=== PATIENT | male | born 1965 | race African-American/Black ===

== ENCOUNTER 2016-12-21 01:06 | Emergency (ER) | payer MEDICARE ==
[~2016-12-21] VITALS: Ht 193 cm; Wt 117.5 kg
[~2016-12-21 01:06] MED LIST: CEPH-264 PO; CYCL10TA2 PO; CYCL5TAB PO; HYDR-971 PO; LANC1COM MC; SULINDAC; gabapentin; oxycodone
[2016-12-21 01:10] VITALS: BP 135/81
[2016-12-21] MEDS ORDERED: CLIN300C86 PO (02:45)
[2016-12-21] MEDS ORDERED: HYDR-971 PO (02:45)
--- NOTE | 2016-12-21 02:46 | PHYS DOC ---
Past Medical History Past Medical History: Anxiety, Arthritis, Bipolar, Depression, Diabetes-Type II , Hypertension, Other Additional Past Medical Histor: FIBROMYALGIA, NEUROPATHY, EARLY ONSET OSTEOARTHRITIS Past Surgical History: Other Additional Past Surgical Histo: R/L KNEE Alcohol Use: None Drug Use: None Adult General Chief Complaint Chief Complaint: ABSCESS HPI HPI 51-year-old male with history of diabetes presents with a red swollen painful area behind his right ear. He states it feels like an abscess. He denies any fever chills or sweats. He states he's had this before in the past. [] Review of Systems Review of Systems Constitutional: Denies fever or chills [] Eyes: Denies change in visual acuity, redness, or eye pain [] HENT: Denies nasal congestion or sore throat [] Respiratory: Denies cough or shortness of breath [] Cardiovascular: No additional information not addressed in HPI [] GI: Denies abdominal pain, nausea, vomiting, bloody stools or diarrhea [] : Denies dysuria or hematuria [] Musculoskeletal: Denies back pain or joint pain [] Integument: Per history of present illness [] Neurologic: Denies headache, focal weakness or sensory changes [] Endocrine: Denies polyuria or polydipsia [] Allergies Allergies Allergies Coded Allergies Type Severity Reaction Last Updated Verified iodine Allergy Severe Anaphylaxis 09/05/16 No shellfish derived Allergy Severe Anaphylaxis 09/05/16 No latex Allergy Intermediate Rash 09/05/16 No Physical Exam Physical Exam Constitutional: Well developed, well nourished, no acute distress, non-toxic appearance. [] HENT: Normocephalic, atraumatic, bilateral external ears normal, oropharynx moist, no oral exudates, nose normal. [] Eyes: PERRLA, EOMI, conjunctiva normal, no discharge. [] Neck: Normal range of motion, no tenderness, supple, no stridor. [] Cardiovascular:Heart rate regular rhythm, no murmur [] Lungs & Thorax: Bilateral breath sounds clear to auscultation [] Abdomen: Bowel sounds normal, soft, no tenderness, no masses, no pulsatile masses. [] Skin: Very small approximately 1 cm area of fluctuance and induration behind the right ear. [] Back: No tenderness, no CVA tenderness. [] Extremities: No tenderness, no cyanosis, no clubbing, ROM intact, no edema. [] Neurologic: Alert and oriented X 3, normal motor function, normal sensory function, no focal deficits noted. [] Psychologic: Affect normal, judgement normal, mood normal. [] Current Patient Data Vital Signs Vital Signs Date Time Temp Pulse Resp B/P Pulse Ox O2 Delivery O2 Flow Rate FiO2 12/21/16 01:10 98.1 100 20 97 Room Air 98.1 EKG EKG [] Radiology/Procedures Radiology/Procedures [] Course & Med Decision Making Course & Med Decision Making Pertinent Labs and Imaging studies reviewed. (See chart for details) [Procedure: Incision and drainage Small abscess was identified behind the right ear. An 11 blade was stabbed into the wound with immediate return. Material. I did express some small amount of. Material after the initial amount. Patient tolerated procedure well patient received 450 mg of clindamycin in the emergency department.] Dragon Disclaimer Dragon Disclaimer This electronic medical record was generated, in whole or in part, using a voice recognition dictation system. Departure Departure Impression: Primary Impression: Abscess of scalp Disposition: HOME, SELF-CARE Condition: STABLE Referrals: NICOLE SANDERS MD (PCP) Patient Instructions: Abscess Additional Instructions: Thank you for allowing us to participate in your care today. Followup with your primary care physician in 3 days if your symptoms do not improve. Return to the emergency department you have any new or concerning findings. This should be evaluated by the primary care physician and any necessary consulting services for continued management within a few days after discharge. Return to emergency room if you have any new or concerning symptoms including but not limited to fever, chills, nausea, vomiting, intractable pain, any new rashes, chest pain, shortness of air, uncontrolled bleeding, difficulty breathing, and/or vision loss. You may have been prescribed medication that can change in your level of thinking and ability to operate machinery. These medications include hydrocodone and Ativan. Also, Benadryl has been known to do this as well. Be sure to check with your pharmacist and ask if the medications you've prescribed can affect your level of consciousness. I recommend not operating heavy machinery or driving while on medication such as these. Scripts Hydrocodone/Apap 5-325 ([place] 5-325 Tablet)1 Each Tablet1 Tab PO PRN Q6HRS PRN PAIN #14 TAB Prov:CHARITY SANCHEZ DO 12/21/16 Clindamycin Hcl 300 Mg [id number] Mg PO QID infection #40 CAP Prov:CHARITY SANCHEZ DO 12/21/16 CHARITY SANCHEZ DO Dec 21, 2016 02:46
[2016-12-21] MEDS ORDERED: CLINDAMYCIN HCL 150 MG CAPSULE PO ONE (03:00)
[2016-12-21] MEDS ORDERED: HYDROCODONE/APAP 5/325MG TABLET. PO ONE (03:00)
== END 2016-12-21 03:15 | disposition home or self-care (01) ==
LOC: ER 01:06
DX: L02.811 Cutaneous abscess of head [any part, except face] (principal); I10 Essential (primary) hypertension; E11.9 Type 2 diabetes mellitus without complications; F31.9 Bipolar disorder, unspecified; M19.90 Unspecified osteoarthritis, unspecified site; M79.7 Fibromyalgia; Z91.041 Radiographic dye allergy status; Z91.040 Latex allergy status; Z91.013 Allergy to seafood
CPT/HCPCS: 10060; 99283-25

== ENCOUNTER 2017-07-11 21:11 | Emergency (ER) | payer MEDICARE ==
[~2017-07-11] VITALS: Ht 193 cm; Wt 112.9 kg
[~2017-07-11 21:11] MED LIST changes: +CLIN300C8 PO
[2017-07-11 22:02] LABS: BASO # 0.1 x10^3/uL (0.0-0.2); BASO % 1 % (0-3); EOS % 2 % (0-3); HEMATOCRIT 36.7 % (39.0-53.0); HEMOGLOBIN 12.4 g/dL (13.0-17.5); LYMPH # 3.9 x10^3/uL (1.0-4.8); LYMPH % 39 % (24-48); MEAN CORPUSCULAR HEMOGLOBIN 27 pg (25-35); MEAN CORPUSCULAR HGB CONC 34 g/dL (31-37); MEAN CORPUSCULAR VOLUME 78 fL (79-100); MONO % 7 % (0-9); NEUT % 51 % (31-73); PLATELET COUNT 515 x10^3/uL (140-400); RED BLOOD COUNT 4.68 x10^6/uL (4.30-5.70); RED CELL DISTRIBUTION WIDTH 14.6 % (11.5-14.5)
[2017-07-11 22:03] LABS: ANION GAP 8 (6-14); BLOOD UREA NITROGEN 8 mg/dL (8-26); CALCIUM 8.9 mg/dL (8.5-10.1); CARBON DIOXIDE 30 mmol/L (21-32); CHLORIDE 103 mmol/L (98-107); CREATININE 0.9 mg/dL (0.7-1.3); GFR 106.8; GLUCOSE 149 mg/dL (70-99); POTASSIUM 3.3 mmol/L (3.5-5.1); SODIUM 141 mmol/L (136-145)
[2017-07-11 22:10] LABS: ALBUMIN 3.3 g/dL (3.4-5.0); ALK PHOS 75 U/L (46-116); ALT (SGPT) 19 U/L (16-63); AST (SGOT) 8 U/L (15-37); DIRECT BILIRUBIN < 0.1 mg/dL (0.0-0.2); TOTAL BILIRUBIN 0.3 mg/dL (0.2-1.0); TOTAL PROTEIN 7.6 g/dL (6.4-8.2)
[2017-07-11 23:30] VITALS: BP 121/89
[2017-07-11] MEDS ORDERED: ASPI-482 PO (23:45)
--- NOTE | 2017-07-11 23:45 | PHYS DOC ---
Past Medical History Past Medical History: Anxiety, Arthritis, Bipolar, Depression, Diabetes-Type II , Hypertension, Other Additional Past Medical Histor: FIBROMYALGIA, NEUROPATHY, EARLY ONSET OSTEOARTHRITIS Past Surgical History: Other Additional Past Surgical Histo: R/L KNEE Alcohol Use: None Drug Use: None Adult General Chief Complaint Chief Complaint: CHEST PAIN HPI HPI 51-year-old male presenting to the emergency department today with substernal chest pain that is 7/10 sharp constant associate with nausea that radiates to his left arm. Worse with Deep breaths. not exertional. He has a history of type II diabetes and high blood pressure. He denies unilateral leg swelling hemoptysis family history of blood clotting disorders or history of blood clot. Review of systems negative for vomiting. Nursing note states the patient has a history diaphoresis however after clarifying with the patient he denies having sweetness of the skin of the time of chest pain. He denies abdominal pain fevers chills or cough. All of the review of systems is negative unless otherwise noted in HPI. ED Course: 51-year-old male presenting to emergency department gave a chest pain. Vital signs unremarkable. Patients painted improved on re-examination. EKG unremarkable. Troponin negative. Patients painted present for greater than six hours. I had a risk-benefit discussion with the patient on acute inpatient admission versus outpatient follow-up. Heart score 3. The patient desires to follow up with his primary care physician for possible outpatient provocative testing. The patient was then discharged home and stable condition. Face-to- face discharge instructions given. Patient provided aspirin daily until follow- up this doctor. Patients comfortable plan. Allergies Allergies Allergies Coded Allergies Type Severity Reaction Last Updated Verified iodine Allergy Severe Anaphylaxis 09/05/16 No shellfish derived Allergy Severe Anaphylaxis 09/05/16 No latex Allergy Intermediate Rash 09/05/16 No Physical Exam Physical Exam Constitutional: Well developed, well nourished, no acute distress, non-toxic appearance. [] HENT: Normocephalic, atraumatic, bilateral external ears normal, oropharynx moist, no oral exudates, nose normal. [] Eyes: PERRLA, EOMI, conjunctiva normal, no discharge. [] Neck: Normal range of motion, no tenderness, supple, no stridor. [] Cardiovascular:Heart rate regular rhythm, no murmur [] Lungs & Thorax: Bilateral breath sounds clear to auscultation [] Abdomen: Bowel sounds normal, soft, no tenderness, no masses, no pulsatile masses. [] Skin: Warm, dry, no erythema, no rash. [] Back: No tenderness, no CVA tenderness. [] Extremities: No tenderness, no cyanosis, no clubbing, ROM intact, no edema. [] Neurologic: Alert and oriented X 3, normal motor function, normal sensory function, no focal deficits noted. [] Psychologic: Affect normal, judgement normal, mood normal. [] Current Patient Data Vital Signs Vital Signs Date Time Temp Pulse Resp B/P (MAP) Pulse Ox O2 Delivery O2 Flow Rate FiO2 07/11/17 23:30 70 11 121/89 (100) 98 07/11/17 21:40 98.3 Room Air 98.3 Lab Values Laboratory Tests Test 07/11/17 21:30 07/11/17 21:48 Glucose (Fingerstick) 139 mg/dL (70-99) H White Blood Count 10.0 x10^3/uL (4.0-11.0) Red Blood Count 4.68 x10^6/uL (4.30-5.70) Hemoglobin 12.4 g/dL (13.0-17.5) L Hematocrit 36.7 % (39.0-53.0) L Mean Corpuscular Volume 78 fL (79-100) L Mean Corpuscular Hemoglobin 27 pg (25-35) Mean Corpuscular Hemoglobin Concent 34 g/dL (31-37) Red Cell Distribution Width 14.6 % (11.5-14.5) H Platelet Count 515 x10^3/uL (140-400) H Neutrophils (%) (Auto) 51 % (31-73) Lymphocytes (%) (Auto) 39 % (24-48) Monocytes (%) (Auto) 7 % (0-9) Eosinophils (%) (Auto) 2 % (0-3) Basophils (%) (Auto) 1 % (0-3) Neutrophils # (Auto) 5.1 x10^3uL (1.8-7.7) Lymphocytes # (Auto) 3.9 x10^3/uL (1.0-4.8) Monocytes # (Auto) 0.7 x10^3/uL (0.0-1.1) Eosinophils # (Auto) 0.2 x10^3/uL (0.0-0.7) Basophils # (Auto) 0.1 x10^3/uL (0.0-0.2) Sodium Level 141 mmol/L (136-145) Potassium Level 3.3 mmol/L (3.5-5.1) L Chloride Level 103 mmol/L (98-107) Carbon Dioxide Level 30 mmol/L (21-32) Anion Gap 8 (6-14) Blood Urea Nitrogen 8 mg/dL (8-26) Creatinine 0.9 mg/dL (0.7-1.3) Estimated GFR (Cockcroft-Gault) 106.8 Glucose Level 149 mg/dL (70-99) H Calcium Level 8.9 mg/dL (8.5-10.1) Total Bilirubin 0.3 mg/dL (0.2-1.0) Direct Bilirubin < 0.1 mg/dL (0.0-0.2) Aspartate Amino Transferase (AST) 8 U/L (15-37) L Alanine Aminotransferase (ALT) 19 U/L (16-63) Alkaline Phosphatase 75 U/L (46-116) Troponin I Quantitative < 0.017 ng/mL (0.000-0.055) VZ-Ddu-N-Type Natriuretic Peptide 337 pg/mL (0-124) H Total Protein 7.6 g/dL (6.4-8.2) Albumin 3.3 g/dL (3.4-5.0) L Lipase 137 U/L (73-393) Laboratory Tests 07/11/17 21:48 Laboratory Tests 07/11/17 21:48 EKG EKG []EKG reviewed by myself shows sinus rhythm regular rate. ST segments concurrent. [place] is mildly leftward. Intervals within normal limits. Not consistent with ACS. Radiology/Procedures Radiology/Procedures [] Course & Med Decision Making Course & Med Decision Making Pertinent Labs and Imaging studies reviewed. (See chart for details) [] Dragon Disclaimer Dragon Disclaimer This electronic medical record was generated, in whole or in part, using a voice recognition dictation system. Departure Departure Impression: Primary Impression: Chest pain Disposition: ADMITTED INPATIENT Condition: STABLE Referrals: NICOLE SANDERS MD (PCP) Patient Instructions: Chest Pain (Nonspecific) Additional Instructions: Thank you for allowing us to participate in your care today. Followup with your primary care physician in 3 days if your symptoms do not improve. Call your Primary Doctor tomorrow and inform them of your visit today. If you do not have a primary care provider you can ask for a list of our primary care providers. Return to the emergency department you have any new or concerning findings. This should be evaluated by the primary care physician and any necessary consulting services for continued management within a few days after discharge. Return to emergency room if you have any new or concerning symptoms including but not limited to fever, chills, nausea, vomiting, intractable pain, any new rashes, chest pain, shortness of air, uncontrolled bleeding, difficulty breathing, and/or vision loss. Scripts Aspirin (ASPIR 81) 81 Mg Tablet.dr 1 TAB PO DAILY, #7 TAB 0 Refills Prov: FRANCOISE CALVILLO MD 07/11/17 FRANCOISE CALVILLO MD Jul 11, 2017 23:45
--- NOTE | 2017-07-12 06:13 | EKG ---
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
--- NOTE | 2017-07-12 08:10 | RAD ---
Portable chest, 07/11/2017: History: Chest pain Comparison is made to a study from 09/05/2016. The heart size and pulmonary vascularity are normal. No pulmonary infiltrates are seen. There is no evidence of pleural fluid. IMPRESSION: No acute cardiopulmonary abnormality is detected.
== END 2017-07-11 23:50 | disposition other institution (70) ==
LOC: ER 21:11
DX: R07.89 Other chest pain (principal); R11.0 Nausea; F31.9 Bipolar disorder, unspecified; E11.40 Type 2 diabetes mellitus with diabetic neuropathy, unspecified; I10 Essential (primary) hypertension; M79.7 Fibromyalgia; M19.90 Unspecified osteoarthritis, unspecified site; Z91.041 Radiographic dye allergy status; Z91.040 Latex allergy status; Z91.013 Allergy to seafood
CPT/HCPCS: 36415; 71010; 80048; 80076; 82962; 83690; 83880; 84484; 85025; 93005; 99285-25

== ENCOUNTER 2018-03-13 01:14 | Emergency (ER) | payer MEDICARE ==
[2018-03-13 01:53] LABS: ADD MAN DIFF? NO
[2018-03-13 02:09] LABS: BASO % 1 % (0-3); EOS # 0.1 x10^3/uL (0.0-0.7); EOS % 1 % (0-3); HEMATOCRIT 41.8 % (39.0-53.0); HEMOGLOBIN 13.8 g/dL (13.0-17.5); LYMPH # 2.9 x10^3/uL (1.0-4.8); LYMPH % 38 % (24-48); MEAN CORPUSCULAR HEMOGLOBIN 27 pg (25-35); MEAN CORPUSCULAR HGB CONC 33 g/dL (31-37); MEAN CORPUSCULAR VOLUME 81 fL (79-100); MONO # 0.7 x10^3/uL (0.0-1.1); MONO % 9 % (0-9); NEUT # 3.8 x10^3uL (1.8-7.7); NEUT % 51 % (31-73); PLATELET COUNT 410 x10^3/uL (140-400); RED BLOOD COUNT 5.15 x10^6/uL (4.30-5.70); RED CELL DISTRIBUTION WIDTH 14.4 % (11.5-14.5); WHITE BLOOD COUNT 7.5 x10^3/uL (4.0-11.0)
[2018-03-13 02:15] LABS: BILIRUBIN,URINE SMALL (NEG); CLARITY,URINE CLEAR; COLOR,URINE YELLOW; GLUCOSE,URINE >=1000 mg/dL (NEG); NITRITE,URINE NEGATIVE (NEG); PROTEIN,URINE NEGATIVE (NEG-TRACE)
[2018-03-13 02:18] LABS: ANION GAP 11 (6-14); BLOOD UREA NITROGEN 19 mg/dL (8-26); BUN/CREATININE RATIO 16 (6-20); CALCIUM 9.9 mg/dL (8.5-10.1); CARBON DIOXIDE 26 mmol/L (21-32); CHLORIDE 100 mmol/L (98-107); CREATININE 1.2 mg/dL (0.7-1.3); GFR 76.3; GLUCOSE 307 mg/dL (70-99); POTASSIUM 3.6 mmol/L (3.5-5.1); SODIUM 137 mmol/L (136-145)
[2018-03-13 02:26] LABS: ALBUMIN 3.7 g/dL (3.4-5.0); ALK PHOS 108 U/L (46-116); ALT (SGPT) 28 U/L (16-63); AST (SGOT) 13 U/L (15-37); LIPASE 158 U/L (73-393); TOTAL BILIRUBIN 0.5 mg/dL (0.2-1.0); TOTAL PROTEIN 7.4 g/dL (6.4-8.2)
[2018-03-13 02:35] LABS: TROPONINI < 0.017 ng/mL (0.000-0.055)
[2018-03-13 02:42] LABS: BACTERIA,URINE FEW /HPF (0-FEW); HYALINE CASTS, URINE FEW /HPF; SQUAMOUS EPITHELIAL CELL,UR FEW /LPF
[2018-03-13] MEDS: IV NORMAL SALINE 1000ML BAG 1,000 ML IV (04:29)
[2018-03-13] MEDS: diphenhydrAMINE 50 MG/ML VIAL IVP (04:29)
[2018-03-13] MEDS: METOCLOPRAMIDE HCL 10 MG/2 ML VIAL. IV (04:30)
[2018-03-13] MEDS: KETOROLAC 30 MG/ML INJ. IV (04:30)
== END 2018-03-13 05:20 | disposition home or self-care (01) ==
LOC: ER 01:14
DX: R51 Headache (principal); E11.65 Type 2 diabetes mellitus with hyperglycemia; E11.40 Type 2 diabetes mellitus with diabetic neuropathy, unspecified; I10 Essential (primary) hypertension; E78.00 Pure hypercholesterolemia, unspecified; F31.9 Bipolar disorder, unspecified; Z91.041 Radiographic dye allergy status; Z91.040 Latex allergy status; Z91.013 Allergy to seafood
CPT/HCPCS: 36415; 70450; 71045; 80053; 81001; 83690; 84484; 85025; 93005; 96361; 96374; 96375; 99285-25; J1200; J1885; J2765; J7030

== ENCOUNTER 2018-03-16 10:17 | Emergency (ER) | payer MEDICARE ==
[2018-03-16 10:34] LABS: ADD MAN DIFF? NO
[2018-03-16 10:37] LABS: POC GLUCOSE 245 mg/dL (70-99)
[2018-03-16 10:40] LABS: BASO # 0.1 x10^3/uL (0.0-0.2); BASO % 1 % (0-3); EOS % 1 % (0-3); HEMATOCRIT 43.1 % (39.0-53.0); HEMOGLOBIN 14.6 g/dL (13.0-17.5); LYMPH # 2.4 x10^3/uL (1.0-4.8); LYMPH % 31 % (24-48); MEAN CORPUSCULAR HEMOGLOBIN 28 pg (25-35); MEAN CORPUSCULAR HGB CONC 34 g/dL (31-37); MEAN CORPUSCULAR VOLUME 81 fL (79-100); MONO # 0.6 x10^3/uL (0.0-1.1); MONO % 8 % (0-9); NEUT # 4.6 x10^3uL (1.8-7.7); NEUT % 60 % (31-73); PLATELET COUNT 488 x10^3/uL (140-400); RED BLOOD COUNT 5.29 x10^6/uL (4.30-5.70); RED CELL DISTRIBUTION WIDTH 14.5 % (11.5-14.5); WHITE BLOOD COUNT 7.7 x10^3/uL (4.0-11.0)
[2018-03-16 10:42] LABS: ANION GAP 9 (6-14); BLOOD UREA NITROGEN 18 mg/dL (8-26); BUN/CREATININE RATIO 15 (6-20); CALCIUM 9.7 mg/dL (8.5-10.1); CARBON DIOXIDE 30 mmol/L (21-32); CHLORIDE 99 mmol/L (98-107); CREATININE 1.2 mg/dL (0.7-1.3); GFR 76.3; GLUCOSE 279 mg/dL (70-99); POTASSIUM 3.6 mmol/L (3.5-5.1); SODIUM 138 mmol/L (136-145)
[2018-03-16] MEDS: ONDANSETRON ODT 4 MG TAB.RAPDIS. PO (10:43)
[2018-03-16] MEDS: IV NORMAL SALINE 1000ML BAG 1,000 ML IV (10:44)
[2018-03-16 10:49] LABS: ALBUMIN 3.9 g/dL (3.4-5.0); ALBUMIN/GLOBULIN RATIO 0.9 (1.0-1.7); ALK PHOS 100 U/L (46-116); ALT (SGPT) 16 U/L (16-63); AST (SGOT) 10 U/L (15-37); TOTAL BILIRUBIN 0.7 mg/dL (0.2-1.0); TOTAL PROTEIN 8.2 g/dL (6.4-8.2)
== END 2018-03-16 12:05 | disposition home or self-care (01) ==
LOC: ER 10:17
DX: R11.0 Nausea (principal); E11.65 Type 2 diabetes mellitus with hyperglycemia; E11.40 Type 2 diabetes mellitus with diabetic neuropathy, unspecified; E78.00 Pure hypercholesterolemia, unspecified; I10 Essential (primary) hypertension; M79.7 Fibromyalgia; F31.9 Bipolar disorder, unspecified; Z90.49 Acquired absence of other specified parts of digestive tract; Z91.041 Radiographic dye allergy status; Z91.040 Latex allergy status; Z91.013 Allergy to seafood
CPT/HCPCS: 36415; 80053; 82962; 85025; 93005; 96360; 99285-25; J7030; Q0162

== ENCOUNTER → 2018-04-19 | Day surgery (SDC) | payer MEDICARE ==
[~2018-04-19] MED LIST changes: -CEPH-264 PO; -CLIN300C8 PO; -CYCL10TA2 PO; -CYCL5TAB PO; -HYDR-971 PO; +IV RINGERS,LACTATED 1000ML 1,000 ML IV; -LANC1COM MC; +LIDOCAINE 1% PF 2 ML VIAL. ID; +MORPHINE SULFATE 2 MG/ML DISP.SYRIN. IV; +MORPHINE SULFATE 4 MG/ML DISP.SYRIN. IV; +ONDANSETRON PF 4 MG/2 ML VIAL. IV; +PROCHLORPERAZINE 10 MG/2 ML VIAL. IV; +PROPOFOL 40 ML IV; -SULINDAC; +fentaNYL PF VIAL 100 MCG/2 ML VIAL IV; -gabapentin; -oxycodone
[2018-04-19 10:14] LABS: POC GLUCOSE 126 mg/dL (70-99)
[2018-04-19] MEDS: IV NORMAL SALINE 1000ML BAG 1,000 ML IV (10:15)
== END | disposition home or self-care (01) ==
LOC: SURG 09:30
DX: R10.13 Epigastric pain (principal); R11.2 Nausea with vomiting, unspecified; I10 Essential (primary) hypertension; E78.00 Pure hypercholesterolemia, unspecified; E11.9 Type 2 diabetes mellitus without complications; K50.90 Crohn's disease, unspecified, without complications; E78.5 Hyperlipidemia, unspecified; Z90.49 Acquired absence of other specified parts of digestive tract; Z98.890 Other specified postprocedural states; M51.26 Other intervertebral disc displacement, lumbar region; Z79.84 Long term (current) use of oral hypoglycemic drugs; Z79.899 Other long term (current) drug therapy; Z88.8 Allergy status to other drugs, medicaments and biological substances
CPT/HCPCS: 43235; 82962; J2704

== ENCOUNTER 2018-09-16 16:47 | Emergency (ER) | payer MEDICARE ==
[~2018-09-16] VITALS: Ht 193 cm; Wt 117.9 kg
[~2018-09-16 16:47] MED LIST changes: +ASPI-482 PO; +CEPH-264 PO; +CLIN300C8 PO; +CYCL10TA2 PO; +CYCL5TAB PO; +HYDR-971 PO; -IV RINGERS,LACTATED 1000ML 1,000 ML IV; +LANC1COM MC; -LIDOCAINE 1% PF 2 ML VIAL. ID; +LOSA1TAB22 PO; +METF10007 PO; -MORPHINE SULFATE 2 MG/ML DISP.SYRIN. IV; -MORPHINE SULFATE 4 MG/ML DISP.SYRIN. IV; +ONDA4TAB10 SL; -ONDANSETRON PF 4 MG/2 ML VIAL. IV; -PROCHLORPERAZINE 10 MG/2 ML VIAL. IV; -PROPOFOL 40 ML IV; +SULINDAC; -fentaNYL PF VIAL 100 MCG/2 ML VIAL IV; +gabapentin; +oxycodone
[2018-09-16 17:16] VITALS: BP 117/80
[2018-09-16] MEDS ORDERED: HYDR-971 PO (17:48)
--- NOTE | 2018-09-16 17:48 | PHYS DOC ---
Past Medical History Past Medical History: Anxiety, Bipolar, Diabetes-Type II, High Cholesterol, Hypertension Additional Past Medical Histor: FIBROMYALGIA, NEUROPATHY, EARLY ONSET OSTEOARTHRITIS Past Surgical History: Appendectomy, Tonsillectomy Additional Past Surgical Histo: R/L KNEE Alcohol Use: None Drug Use: None Adult General Chief Complaint Chief Complaint: BACK PAIN - NO INJURY [facility] HPI Patient is a 53 year old male with history of chronic low back pain who presents today complaining of 10 out of 10 bilateral low back pain radiating to the left lower extremity that got worse in the last 7 days after he started a new job where he was on his feet for long time. Patient is also complaining of numbness going to the left lower extremity. Patient states he was seen by the PCP, had MRI done he states he does not know the results. Patient states his continue having the pain. Denies any new injuries. Denies any loss of bowel/ bladder function. Review of Systems Review of Systems Constitutional: Denies fever or chills [] Eyes: Denies change in visual acuity, redness, or eye pain [] HENT: Denies nasal congestion or sore throat [] Respiratory: Denies cough or shortness of breath [] Cardiovascular: No additional information not addressed in HPI [] GI: Denies abdominal pain, nausea, vomiting, bloody stools or diarrhea [] : Denies dysuria or hematuria [] Musculoskeletal: Reports bilateral low back pain radiating to the left lower extremity with some numbness Integument: Denies rash or skin lesions [] Neurologic: Denies headache, focal weakness or sensory changes [] All other systems were reviewed and found to be within normal limits, except as documented in this note. Allergies Allergies Allergies Coded Allergies Type Severity Reaction Last Updated Verified iodine Allergy Severe Anaphylaxis 04/19/18 No shellfish derived Allergy Severe Anaphylaxis 04/19/18 No latex Allergy Intermediate Rash 04/19/18 No Physical Exam Physical Exam Constitutional: Well developed, well nourished, no acute distress, non-toxic appearance. [] HENT: Normocephalic, atraumatic, bilateral external ears normal, oropharynx moist, no oral exudates, nose normal. [] Eyes: PERRLA, EOMI, conjunctiva normal, no discharge. [] Neck: Normal range of motion, no tenderness, supple, no stridor. [] Cardiovascular:Heart rate regular rhythm, no murmur [] Lungs & Thorax: Bilateral breath sounds clear to auscultation [] Abdomen: Bowel sounds normal, soft, no tenderness, no masses, no pulsatile masses. [] Skin: Warm, dry, no erythema, no rash. [] Back: No tenderness, no CVA tenderness. [] Extremities: No tenderness, no cyanosis, no clubbing, ROM intact, no edema. [] Neurologic: Alert and oriented X 3, normal motor function, normal sensory function, no focal deficits noted. [] Psychologic: Affect normal, judgement normal, mood normal. [] Current Patient Data Vital Signs Vital Signs Date Time Temp Pulse Resp B/P (MAP) Pulse Ox O2 Delivery O2 Flow Rate FiO2 09/16/18 17:16 98.2 95 18 117/80 (92) 98 Room Air 98.2 EKG EKG [] Radiology/Procedures Radiology/Procedures [] Course & Med Decision Making Course & Med Decision Making Pertinent Labs and Imaging studies reviewed. (See chart for details) This is a 53-year-old male patient presenting to the ED today with exacerbation of chronic back pain. No known injury. Patient is currently on multiple medications including Tramadol, cyclobenzaprine, NSAIDs and gabapentin with no relief. I gave him prescription for 6 tablets of [place] 6 tablets. Also given prescription for Medrol Dosepak. He has an appointment with his own PCP on 22 September 2018. He does not have any cauda equina syndrome symptoms. Dragon Disclaimer Dragon Disclaimer This electronic medical record was generated, in whole or in part, using a voice recognition dictation system. Departure Departure Impression: Primary Impression: Chronic low back pain Additional Impression: Sciatica of left side Disposition: 01 HOME, SELF-CARE Condition: STABLE (his blood pressure is 200() Referrals: NICOLE SANDERS MD (PCP) Follow up with your doctor as soon as you can Patient Instructions: Back Pain, Adult, Sciatica Additional Instructions: You were evaluated in the emergency room for back pain. Please continue taking your home medications as well as the new medications prescribed. Follow-up with your doctor as soon as possible. Come back to the emergency room at any point symptoms worsen. Scripts Hydrocodone/Apap 5-325 ([place] 5-325 TABLET) 1 Each Tablet 1 TAB PO Q6HRS, #6 TAB Prov: MICRAEANNEVA APRN 09/16/18 Problem Qualifiers Primary Impression: Chronic low back pain Back pain laterality: bilateral Sciatica presence: with sciatica Sciatica laterality: sciatica of left side Qualified Codes: M54.42 - Lumbago with sciatica, left side; G89.29 - Other chronic pain EVA FRANCE APRN Sep 16, 2018 17:48
== END 2018-09-16 17:58 | disposition home or self-care (01) ==
LOC: ER 16:47
DX: G89.29 Other chronic pain (principal); M54.42 Lumbago with sciatica, left side; E78.00 Pure hypercholesterolemia, unspecified; F31.9 Bipolar disorder, unspecified; E11.40 Type 2 diabetes mellitus with diabetic neuropathy, unspecified; I10 Essential (primary) hypertension; Z90.89 Acquired absence of other organs; Z91.041 Radiographic dye allergy status; Z91.040 Latex allergy status; Z91.013 Allergy to seafood
CPT/HCPCS: 99283

== ENCOUNTER 2018-12-16 15:05 | Inpatient (IN) | payer MEDICARE ==
[~2018-12-16] VITALS: Ht 193 cm; Wt 115.7 kg
[~2018-12-16 15:05] MED LIST changes: +HYDR-3164 PO; -HYDR-971 PO
[2018-12-16] MEDS ORDERED: IV NORMAL SALINE 1000ML BAG 1,000 ML IV SCH (15:29)
[2018-12-16] MEDS ORDERED: ONDANSETRON PF 4 MG/2 ML VIAL. IV ONE (15:30)
[2018-12-16] MEDS ORDERED: MORPHINE SULFATE 4 MG/ML VIAL. IV ONE ×3 (15:30→19:00)
--- NOTE | 2018-12-16 15:32 | PHYS DOC ---
Past Medical History Past Medical History: Anxiety, Bipolar, Diabetes-Type II, High Cholesterol, Hypertension Additional Past Medical Histor: FIBROMYALGIA, NEUROPATHY, EARLY ONSET OSTEOARTHRITIS Past Surgical History: Appendectomy, Tonsillectomy Additional Past Surgical Histo: R/L KNEE Alcohol Use: None Drug Use: None Adult General Chief Complaint Chief Complaint: ABDOMINAL PAIN HPI HPI Patient is a 53 year old male who presents with left lower abdominal pain for the last 2 days. Patient states that he's had some nausea vomiting yesterday. Patient states he ate some vegetables this morning but he began having the cramping pain in his lower abdomen again. He denies any diarrhea. Patient states he thinks he's been running a fever of he's had cold chills. Patient is diaphoretic. Patient denies shortness of air, chest pain, numbness or tingling, dizziness, headache, frequent urination or dysuria. Review of Systems Review of Systems Constitutional: fever or chills [] Eyes: Denies change in visual acuity, redness, or eye pain [] HENT: Denies nasal congestion or sore throat [] Respiratory: Denies cough or shortness of breath [] Cardiovascular: No additional information not addressed in HPI [] GI: LLQ abdominal pain, nausea, vomiting, denies bloody stools or diarrhea [] : Denies dysuria or hematuria [] Musculoskeletal: Denies back pain or joint pain [] Integument: Denies rash or skin lesions [] Neurologic: Denies headache, focal weakness or sensory changes [] All other systems were reviewed and found to be within normal limits, except as documented in this note. Current Medications Current Medications Current Medications Medications (Trade) Dose Ordered Sig/Tiff Start Time Stop Time Status Last Admin Dose Admin Famotidine (Pepcid Vial) 20 mg 1X ONCE 12/16/18 17:00 12/16/18 17:01 DC 12/16/18 17:17 20 MG Fentanyl Citrate (Fentanyl 2ml Vial) 75 mcg 1X ONCE 12/16/18 16:45 12/16/18 16:46 DC 12/16/18 17:18 75 MCG Morphine Sulfate (Morphine Sulfate) 4 mg PRN Q2HR PRN 12/16/18 17:30 12/17/18 17:29 12/16/18 18:01 4 MG Ondansetron HCl (Zofran) 4 mg PRN Q8HRS PRN 12/16/18 17:30 12/17/18 17:29 Sodium Chloride 1,000 ml @ 80 mls/hr [id number] 12/16/18 17:23 12/17/18 17:22 12/16/18 18:01 80 MLS/HR Allergies Allergies Allergies Coded Allergies Type Severity Reaction Last Updated Verified iodine Allergy Severe Anaphylaxis 04/19/18 No shellfish derived Allergy Severe Anaphylaxis 04/19/18 No latex Allergy Intermediate Rash 04/19/18 No Physical Exam Physical Exam Constitutional: Well developed, well nourished, no acute distress, non-toxic appearance. [] HENT: Normocephalic, atraumatic, bilateral external ears normal, oropharynx moist, no oral exudates, nose normal. [] Eyes: PERRLA, EOMI, conjunctiva normal, no discharge. [] Neck: Normal range of motion, no tenderness, supple, no stridor. [] Cardiovascular:Heart rate regular rhythm, no murmur [] Lungs & Thorax: Bilateral breath sounds clear to auscultation [] Abdomen: Bowel sounds normal, soft, no tenderness, no masses, no pulsatile masses. [] Skin: Warm, diaphoretic, no erythema, no rash. [] Back: No tenderness, no CVA tenderness. [] Extremities: No tenderness, no cyanosis, no clubbing, ROM intact, no edema. [] Neurologic: Alert and oriented X 3, normal motor function, normal sensory function, no focal deficits noted. [] Psychologic: Affect normal, judgement normal, mood normal. [] Current Patient Data Vital Signs Vital Signs Date Time Temp Pulse Resp B/P (MAP) Pulse Ox O2 Delivery O2 Flow Rate FiO2 12/16/18 17:00 82 18 165/91 (115) 99 Room Air 12/16/18 15:05 99.2 99.2 Lab Values Laboratory Tests Test 12/16/18 15:30 12/16/18 16:10 White Blood Count 9.3 x10^3/uL (4.0-11.0) Red Blood Count 5.34 x10^6/uL (4.30-5.70) Hemoglobin 13.9 g/dL (13.0-17.5) Hematocrit 43.5 % (39.0-53.0) Mean Corpuscular Volume 82 fL (79-100) Mean Corpuscular Hemoglobin 26 pg (25-35) Mean Corpuscular Hemoglobin Concent 32 g/dL (31-37) Red Cell Distribution Width 14.5 % (11.5-14.5) Platelet Count 395 x10^3/uL (140-400) Neutrophils (%) (Auto) 65 % (31-73) Lymphocytes (%) (Auto) 27 % (24-48) Monocytes (%) (Auto) 7 % (0-9) Eosinophils (%) (Auto) 1 % (0-3) Basophils (%) (Auto) 1 % (0-3) Neutrophils # (Auto) 6.1 x10^3uL (1.8-7.7) Lymphocytes # (Auto) 2.5 x10^3/uL (1.0-4.8) Monocytes # (Auto) 0.6 x10^3/uL (0.0-1.1) Eosinophils # (Auto) 0.0 x10^3/uL (0.0-0.7) Basophils # (Auto) 0.1 x10^3/uL (0.0-0.2) Sodium Level 135 mmol/L (136-145) L Potassium Level 3.6 mmol/L (3.5-5.1) Chloride Level 101 mmol/L (98-107) Carbon Dioxide Level 26 mmol/L (21-32) Anion Gap 8 (6-14) Blood Urea Nitrogen 10 mg/dL (8-26) Creatinine 1.0 mg/dL (0.7-1.3) Estimated GFR (Cockcroft-Gault) 93.9 BUN/Creatinine Ratio 10 (6-20) Glucose Level 369 mg/dL (70-99) H Lactic Acid Level 2.4 mmol/L (0.4-2.0) H Calcium Level 10.0 mg/dL (8.5-10.1) Total Bilirubin 0.6 mg/dL (0.2-1.0) Aspartate Amino Transferase (AST) 11 U/L (15-37) L Alanine Aminotransferase (ALT) 23 U/L (16-63) Alkaline Phosphatase 100 U/L (46-116) Troponin I Quantitative < 0.017 ng/mL (0.000-0.055) Total Protein 8.2 g/dL (6.4-8.2) Albumin 3.7 g/dL (3.4-5.0) Albumin/Globulin Ratio 0.8 (1.0-1.7) L Lipase 205 U/L (73-393) Urine Collection Type Void Urine Color Yellow Urine Clarity Cloudy Urine pH 6.0 Urine Specific Agency >=1.030 Urine Protein Negative mg/dL (NEG-TRACE) Urine Glucose (UA) >=1000 mg/dL (NEG) Urine Ketones (Stick) Trace mg/dL (NEG) Urine Blood Negative (NEG) Urine Nitrite Negative (NEG) Urine Bilirubin Negative (NEG) Urine Urobilinogen Dipstick 0.2 mg/dL (0.2 mg/dL) Urine Leukocyte Esterase Negative (NEG) Urine RBC Occ /HPF (0-2) Urine WBC 1-4 /HPF (0-4) Urine Squamous Epithelial Cells Occ /LPF Urine Bacteria 0 /HPF (0-FEW) Urine Hyaline Casts Occasional /HPF Urine Mucus Slight /LPF Laboratory Tests 12/16/18 15:30 Laboratory Tests 12/16/18 15:30 EKG EKG [] Radiology/Procedures Radiology/Procedures CT abdomen pelvis Impressions: [facility] [address] [place], [place] [id number] IMAGING REPORT Signed PATIENT: BÁRBARA JACKMAN ACCOUNT: [id number] : 1965 LOCATION: ER AGE: 53 SEX: M EXAM STATUS: REG ER ORD. PHYSICIAN: HAILEY POWELL APRN REASON: LLQ abd pain PROCEDURE: CT ABDOMEN PELVIS WO CONTRAST PQRS Compliance Statement: One or more of the following individualized dose reduction techniques were utilized for this examination: 1. Automated exposure control 2. Adjustment of the mA and/or kV according to patient size 3. Use of iterative reconstruction technique CT ABDOMEN PELVIS WO CONTRAST Clinical Indication: LLQ ABD PAIN Comparison: CT abdomen and pelvis without contrast October 09, 2016. Technique: Helical CT imaging of the abdomen and pelvis is performed without IV or oral contrast. Findings: Evaluation of solid organs and bowel is limited without oral and IV contrast, decreasing sensitivity for detection of pathology. Lung bases are clear. Cardiac size normal. There is a large gallstone. Liver, spleen, pancreas, adrenal glands, abdominal aorta, and kidneys are normal. Stomach unremarkable. No dilated small bowel. No colon wall thickening. The appendix is not identified, no secondary signs of appendicitis. No abdominal adenopathy or free fluid. Urinary bladder is normal. Prostate size normal. No pelvic free fluid. Vacuum disc phenomenon of L4/L5 and L5/S1. IMPRESSION: 1. No acute abdominal or pelvic abnormality. 2. Cholelithiasis. Electronically signed by: Rhys Syed MD (12/16/2018 4:14 PM) [id number] DICTATED and SIGNED BY: RHYS SYED MD DATE: 12/16/18 1608 Course & Med Decision Making Course & Med Decision Making Patient is a 53 year old male who presents with left lower abdominal pain for the last 2 days. Patient states that he's had some nausea vomiting yesterday. Patient states he ate some vegetables this morning but he began having the cramping pain in his lower abdomen again. He denies any diarrhea. Patient states he thinks he's been running a fever of he's had cold chills. Patient is diaphoretic. Patient denies shortness of air, chest pain, numbness or tingling, dizziness, headache, frequent urination or dysuria. Alert and oriented. Mucous membranes are moist and pink. Skin is pink but patient is diaphoretic. Abdomen is soft and non-tender. Patient states that he's got cramping in the left lower abdomen but does not radiate. Rates his pain 8 out of 10. He came per EMS who gave him 50 of fentanyl in route. No peritoneal signs. Patient has no extremity edema. neurologically intact. Speaks in full clear sentences. CT ABD PELV shows 1. No acute abdominal or pelvic abnormality. 2. Cholelithiasis. I've spoken to Dr. Sanders who states to consult for GI and a lactic acid on the patient. Patient is admitted for pain control. 185: Patient's lactic acid is 2.4. I called Dr. Sanders and told him about the lab result. Patient is started on Levaquin and Flagyl and a surgical consult is placed. Patient is also given another bolus of normal saline. Patient is still an intractable abdominal pain. Patient is moving around in the bed and cannot get comfortable. I did tell Dr. Sanders of this. I given the patient another 4 mg of morphine. Patient is on his way up to the unit. Dragon Disclaimer Dragon Disclaimer This electronic medical record was generated, in whole or in part, using a voice recognition dictation system. Departure Departure Impression: Primary Impression: Intractable abdominal pain Disposition: ADMITTED INPATIENT Admitting Physician: Franco Sanders Condition: STABLE Referrals: FRANCO SANDERS MD (PCP) HAILEY POWELL APRN Dec 16, 2018 15:32
[2018-12-16 16:06] LABS: BASO # 0.1 x10^3/uL (0.0-0.2); BASO % 1 % (0-3); EOS % 1 % (0-3); HEMATOCRIT 43.5 % (39.0-53.0); HEMOGLOBIN 13.9 g/dL (13.0-17.5); LYMPH # 2.5 x10^3/uL (1.0-4.8); LYMPH % 27 % (24-48); MEAN CORPUSCULAR HEMOGLOBIN 26 pg (25-35); MEAN CORPUSCULAR HGB CONC 32 g/dL (31-37); MEAN CORPUSCULAR VOLUME 82 fL (79-100); MONO # 0.6 x10^3/uL (0.0-1.1); MONO % 7 % (0-9); NEUT # 6.1 x10^3uL (1.8-7.7); NEUT % 65 % (31-73); PLATELET COUNT 395 x10^3/uL (140-400); RED BLOOD COUNT 5.34 x10^6/uL (4.30-5.70); RED CELL DISTRIBUTION WIDTH 14.5 % (11.5-14.5); WHITE BLOOD COUNT 9.3 x10^3/uL (4.0-11.0)
--- NOTE | 2018-12-16 16:19 | RAD ---
PQRS Compliance Statement: One or more of the following individualized dose reduction techniques were utilized for this examination: 1. Automated exposure control 2. Adjustment of the mA and/or kV according to patient size 3. Use of iterative reconstruction technique CT ABDOMEN PELVIS WO CONTRAST Clinical Indication: LLQ ABD PAIN Comparison: CT abdomen and pelvis without contrast October 09, 2016. Technique: Helical CT imaging of the abdomen and pelvis is performed without IV or oral contrast. Findings: Evaluation of solid organs and bowel is limited without oral and IV contrast, decreasing sensitivity for detection of pathology. Lung bases are clear. Cardiac size normal. There is a large gallstone. Liver, spleen, pancreas, adrenal glands, abdominal aorta, and kidneys are normal. Stomach unremarkable. No dilated small bowel. No colon wall thickening. The appendix is not identified, no secondary signs of appendicitis. No abdominal adenopathy or free fluid. Urinary bladder is normal. Prostate size normal. No pelvic free fluid. Vacuum disc phenomenon of L4/L5 and L5/S1. IMPRESSION: 1. No acute abdominal or pelvic abnormality. 2. Cholelithiasis. Electronically signed by: Rhys Syed MD (12/16/2018 4:14 PM) [id number]
[2018-12-16 16:23] LABS: GFR 93.9; POTASSIUM 3.6 mmol/L (3.5-5.1)
[2018-12-16 16:23] LABS: BILIRUBIN,URINE NEGATIVE (NEG); CLARITY,URINE CLOUDY; COLOR,URINE YELLOW; NITRITE,URINE NEGATIVE (NEG); PROTEIN,URINE NEGATIVE (NEG-TRACE); UROBILINOGEN,URINE 0.2 mg/dL (0.2 mg/dL)
[2018-12-16 16:29] LABS: ALBUMIN 3.7 g/dL (3.4-5.0); ALBUMIN/GLOBULIN RATIO 0.8 (1.0-1.7); TOTAL BILIRUBIN 0.6 mg/dL (0.2-1.0); TOTAL PROTEIN 8.2 g/dL (6.4-8.2)
[2018-12-16 16:34] LABS: BACTERIA,URINE 0 /HPF (0-FEW); HYALINE CASTS, URINE OCCASIONAL /HPF; RBC,URINE OCC /HPF (0-2); SQUAMOUS EPITHELIAL CELL,UR OCC /LPF
[2018-12-16] MEDS ORDERED: fentaNYL PF VIAL 100 MCG/2 ML VIAL IV ONE (16:45)
[2018-12-16] MEDS ORDERED: FAMOTIDINE 20 MG/2 ML VIAL IVP ONE (17:00)
[2018-12-16] MEDS: IV NORMAL SALINE 1000ML BAG 1,000 ML IV SCH ×2 (18:01→21:21)
[2018-12-16] MEDS: MORPHINE SULFATE 4 MG/ML VIAL. IV PRN ×2 (18:01→20:32)
[2018-12-16] MEDS ORDERED: IV NORMAL SALINE 1000ML BAG 1,000 ML IV ONE (19:00)
[2018-12-16] MEDS ORDERED: levOFLOXacin PER PHARMACY. MC PRN (19:00)
[2018-12-16 20:20] VITALS: BP 164/94
[2018-12-16] MEDS: ONDANSETRON PF 4 MG/2 ML VIAL. IV PRN (21:22)
[2018-12-16] MEDS: ZOLPIDEM 5 MG TABLET. PO PRN (22:32)
--- NOTE | 2018-12-16 23:20 | NUR ---
Upon administration of pain medication to patient, patient confessed he was very agitated with his pain prior to coming to the hospital to the point where he had thoughts of ending his pain by ending his life due to his desperation. This nurse promptly asked if a plan was in place and if he was currently having those same thoughts. Patient stated he was thinking of taking a numerous amount of pills he had at home, he stated he was not currently having any thoughts of that sort due to finally getting some pain relief while being in the hospital. Patient stated that if he wouldn't of been able to receive the help he needed when calling the ambulance, then that is when he would've put his plan into effect. Patient grateful for the care he is receiving here. Nursing flight test supervisor notified of this interaction with patient. Patient stable in bed. Will continue to monitor.
[2018-12-16 23:40] VITALS: BP 148/84
[2018-12-17] MEDS: MORPHINE SULFATE 4 MG/ML VIAL. IV PRN ×5 (00:03→13:03)
[2018-12-17 03:56] VITALS: BP 146/87
[2018-12-17 05:12] LABS: BASO % 0 % (0-3); EOS # 0.1 x10^3/uL (0.0-0.7); EOS % 2 % (0-3); HEMATOCRIT 39.4 % (39.0-53.0); HEMOGLOBIN 12.8 g/dL (13.0-17.5); LYMPH # 2.4 x10^3/uL (1.0-4.8); LYMPH % 30 % (24-48); MEAN CORPUSCULAR HEMOGLOBIN 27 pg (25-35); MEAN CORPUSCULAR HGB CONC 32 g/dL (31-37); MEAN CORPUSCULAR VOLUME 82 fL (79-100); MONO # 0.7 x10^3/uL (0.0-1.1); MONO % 9 % (0-9); NEUT # 4.7 x10^3uL (1.8-7.7); NEUT % 59 % (31-73); PLATELET COUNT 350 x10^3/uL (140-400); RED BLOOD COUNT 4.81 x10^6/uL (4.30-5.70); RED CELL DISTRIBUTION WIDTH 14.6 % (11.5-14.5)
[2018-12-17 05:30] LABS: ALBUMIN 3.3 g/dL (3.4-5.0); ALBUMIN/GLOBULIN RATIO 0.9 (1.0-1.7); CALCIUM 8.7 mg/dL (8.5-10.1); CREATININE 0.9 mg/dL (0.7-1.3); POTASSIUM 3.8 mmol/L (3.5-5.1); TOTAL BILIRUBIN 0.8 mg/dL (0.2-1.0)
[2018-12-17] MEDS ORDERED: ZIPR40CA2 PO (06:21)
[2018-12-17] MEDS ORDERED: GABA600T7 PO (06:21)
[2018-12-17] MEDS ORDERED: AMLO10TA8 PO (06:21)
[2018-12-17] MEDS ORDERED: LOSA100T14 PO (06:21)
[2018-12-17] MEDS ORDERED: DULO60CA6 PO (06:21)
[2018-12-17] MEDS ORDERED: METF10007 PO (06:21)
[2018-12-17 07:35] VITALS: BP 153/88
--- NOTE | 2018-12-17 09:46 | EKG ---
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
[2018-12-17] MEDS: ONDANSETRON PF 4 MG/2 ML VIAL. IV PRN (10:16)
[2018-12-17] MEDS ORDERED: DEXTROSE 50% 25 GM / 50ML DISP.SYRIN. IV PRN (11:15)
--- NOTE | 2018-12-17 11:21 | PDOC ---
Provider Note Provider Note Pt seen.H&P dictated.#[id number] NICOLE SANDERS MD Dec 17, 2018 11:21
[2018-12-17 11:28] VITALS: BP 156/98
[2018-12-17] MEDS ORDERED: CYCLOBENZAPRINE 10 MG TABLET. PO PRN (11:30)
--- NOTE | 2018-12-17 11:54 | HP ---
ADMIT DATE: 12/16/2018 LOCATION: 3. REASON FOR ADMISSION TO HOSPITAL: Abdominal pain. HISTORY OF PRESENT ILLNESS: The patient is a 53-year-old male, patient known to me, has a history of diabetes, bipolar, hypertension, hyperlipidemia, fibromyalgia, arthritis and he was having pain in the left lower quadrant, got progressively worse. It was kind of severe pain, came to the Emergency Room, had a CT scan, which shows gallstones, but nothing major on the left side, where he was having more pain. Also, some nausea, no vomiting, no diarrhea. The patient was admitted for pain control. Lactic acid was high at 2.4. White count was normal. Urine was negative. PAST MEDICAL HISTORY: History of diabetes, hypertension, hyperlipidemia, kidney stones, fibromyalgia, neuropathy, and bipolar. PAST SURGICAL HISTORY: Appendectomy, tonsillectomy, surgery on the ankle and the knee. ALLERGIES: IODINE, LATEX, SHELLFISH. MEDICATIONS AT HOME: The patient is on amlodipine 10 mg, aspirin 81 mg, hydrocodone q.6, cyclobenzaprine 5 mg a day, Cymbalta 60 mg daily, gabapentin 600 mg twice a day, losartan 100 mg daily, metformin 1000 mg twice a day, Geodon 40 mg 3 times daily. PERSONAL HISTORY: Smoked 1 pack. Denies alcohol. Denies any street drugs. FAMILY HISTORY: Positive for diabetes, hypertension. REVIEW OF SYSTEMS: CARDIAC: No chest pain. GASTROINTESTINAL: Has left lower abdominal pain, no diarrhea, no vomiting, no blood in the stool. GENITOURINARY: He said he had history of kidney stones in the past. Rest of the 14-system was reviewed and negative. PHYSICAL EXAMINATION: VITAL SIGNS: At the time of admission shows a temperature 99, pulse 99, respirations 22, blood pressure 140/90, 95% on room air. HEENT: Head is atraumatic. Pupils equal. Oral cavity: No congestion. NECK: Supple. Thyroid not enlarged. JVD not elevated. CHEST: Symmetrical. CARDIOVASCULAR: S1, S2. LUNGS: Clear to auscultation. ABDOMEN: Soft, no tenderness in the right upper quadrant. The patient has some gallstones on the CT scan. The patient has tenderness in the left lower quadrant. No rebound. Bowel sounds present. EXTERNAL GENITALIA: No Noonan. Testicles, no tenderness. RECTAL: Deferred. EXTREMITIES: No calf tenderness, no edema. Pulses 1+. NEUROLOGIC: Moving all extremities. No focal deficits noted. LABORATORY DATA: Shows a white count of 9, hemoglobin 14, platelets 395. Electrolytes show sodium 135, potassium 3.6, chloride 101, bicarbonate 26, anion gap 8, BUN 10, creatinine 1.0, glucose 369. LFTs were normal. Amylase and lipase was normal. Lactic acid was 2.4, today is 2.1 and urine was negative. Sugar more than 1000 in the urine. Abdominal pelvic CT scan shows no acute abnormalities, some gallstones. FINAL IMPRESSION: 1. Abdominal pain, left lower quadrant, possible diverticulosis. 2. Asymptomatic gallstones. 3. Diabetes. 4. Hypertension. 5. Hyperlipidemia. 6. History of bipolar, on Geodon. 7. Lactic acidosis. PLAN: At this time, he was given IV fluids and his belly is soft today. He is on clear liquid, advance as tolerated. Resume home medications. GI was consulted and see how the patient improves in the next 24-48 hours. DVT prevention and fingersticks. NICOLE SANDERS MD DR: WAI/lorenzo JOB#: [id number] / [id number]
[2018-12-17] MEDS: GABAPENTIN 300 MG CAPSULE. PO SCH ×2 (12:58→20:26)
[2018-12-17] MEDS: amLODIPine BESYLATE 10 MG TABLET PO SCH (12:58)
[2018-12-17] MEDS: DULoxetine HCL 30 MG CAPSULE.DR PO SCH ×2 (12:59→20:26)
[2018-12-17] MEDS: LOSARTAN POTASSIUM 50 MG TABLET. PO SCH (12:59)
[2018-12-17] MEDS: ASPIRIN ENTERIC COATED 81 MG TABLET.DR. PO SCH (13:00)
[2018-12-17] MEDS: hydroCHLOROthiazide 25 MG TABLET PO SCH (13:00)
--- NOTE | 2018-12-17 13:34 | RAD ---
CHEST PA LATERAL Clinical indications: upper abdomen pain, pneumonia COMPARISON: March 13, 2018. Findings: There is mild left lung base infiltrate or atelectasis. The right lung field is clear. No pleural effusion or pneumothorax is seen. The heart size, pulmonary vasculature, mediastinum and both amelia are unremarkable. The osseous structures appear intact. Impression: Mild left lung base infiltrate or atelectasis. Electronically signed by: Aly Muller MD (12/17/2018 1:29 PM) [facility]
[2018-12-17] MEDS: DICYCLOMINE HCL 10 MG CAPSULE PO SCH ×3 (14:45→20:26)
[2018-12-17] MEDS: ZIPRASIDONE 20 MG CAPSULE PO SCH ×2 (14:45→20:26)
[2018-12-17] MEDS: INSULIN LISPRO 300 UNITS/3 ML INSULN.PEN. SQ SCH ×2 (14:50→18:10)
--- NOTE | 2018-12-17 15:15 | PDOC2 ---
CONSULT Date of Consult Date of Consult DATE: 12/17/18 TIME: 15:06 Reason for Consult Reason for Consult: left sided abdominal pain, cholelithiasis Referring Physician Referring Physician: Dr Barber Identification/Chief Complaint Chief Complaint left sided abdominal pain Source Source: Chart review, Patient History of Present Illness Reason for Visit: Luiz is a 53 yo gentleman who was admitted for c/o left sided abdominal pain, some nausea but no vomiting. He tells me he has had similar episodes in the past , but not this severe. CT on presentation showed a large gall stone without changes of acute cholecystitis. No left sided changes were seen. Past Medical History Cardiovascular: HTN Psych: Bipolar Endocrine: Diabetes Past Surgical History Past Surgical History: Appendectomy, Tonsillectomy, Other (orthopedic (ankle, knee)) Family History Family History: Diabetes, Hypertension Social History 1 pack per day ALCOHOL: none Drugs: None Current Problem List Problem List Problems Medical Problems: (1) Intractable abdominal pain Status: Acute Current Medications Current Medications Current Medications Sodium Chloride 1,000 ml @ 1,000 mls/hr Q1H IV Last administered on 12/16/18at 15:42; Start 12/16/18 at 15:29; Stop 12/16/18 at 16:28; Status DC Ondansetron HCl (Zofran) 4 mg 1X ONCE IV Last administered on 12/16/18at 15:52 ; Start 12/16/18 at 15:30; Stop 12/16/18 at 15:34; Status DC Morphine Sulfate (Morphine Sulfate) 2 mg 1X ONCE IV ; Start 12/16/18 at 15:30; Stop 12/16/18 at 15:31; Status Cancel Morphine Sulfate (Morphine Sulfate) 4 mg 1X ONCE IV Last administered on at 15:53; Start 12/16/18 at 16:00; Stop 12/16/18 at 16:01; Status DC Fentanyl Citrate (Fentanyl 2ml Vial) 75 mcg 1X ONCE IV Last administered on at 17:18; Start 12/16/18 at 16:45; Stop 12/16/18 at 16:46; Status DC Famotidine (Pepcid Vial) 20 mg 1X ONCE IVP Last administered on 12/16/18at 17: 17; Start 12/16/18 at 17:00; Stop 12/16/18 at 17:01; Status DC Ondansetron HCl (Zofran) 4 mg PRN Q8HRS PRN IV NAUSEA/VOMITING Last administered on 12/17/18 10:16; Start 12/16/18 at 17:30; Stop 12/17/18 at 17:29 Morphine Sulfate (Morphine Sulfate) 4 mg PRN Q2HR PRN IV PAIN Last administered on 12/17/18at 13:03; Start 12/16/18 at 17:30; Stop 12/17/18 at 17:29 Sodium Chloride 1,000 ml @ 80 mls/hr [id number] IV Last administered on at 21:21; Start 12/16/18 at 17:23; Stop 12/17/18 at 17:22 Levofloxacin/ Dextrose (Levaquin Per Pharmacy) 1 each PRN DAILY PRN MC SEE COMMENTS; Start 12/16/18 at 19:00 Metronidazole 100 ml @ 100 mls/hr 1X ONCE IV Last administered on 12/16/18 22:32; Start 12/16/18 at 19:00; Stop 12/16/18 at 19:59; Status DC Sodium Chloride 1,000 ml @ 1,000 mls/hr 1X ONCE IV Last administered on at 19:00; Start 12/16/18 at 19:00; Stop 12/16/18 at 19:59; Status DC Morphine Sulfate (Morphine Sulfate) 4 mg 1X ONCE IV Last administered on at 19:14; Start 12/16/18 at 19:00; Stop 12/16/18 at 19:01; Status DC Levofloxacin/ Dextrose 100 ml @ 100 mls/hr Q24H IV Last administered on at 19:25; Start 12/16/18 at 19:00 Zolpidem Tartrate (Ambien) 5 mg PRN QHS PRN PO INSOMNIA Last administered on 22:32; Start 12/16/18 at 22:30 Amlodipine Besylate (Norvasc) 10 mg DAILY PO Last administered on 12/17/18at 12: 58; Start 12/17/18 at 12:00 Aspirin (Ecotrin) 81 mg DAILY PO Last administered on 12/17/18at 13:00; Start at 12:00 Acetaminophen/ Hydrocodone Bitart (Lortab 5/325) 1 tab PRN Q6HRS PRN PO PAIN; Start 12/17/18 at 12:00 Cyclobenzaprine HCl (Flexeril) 5 mg PRN TID PRN PO MUSCLE SPASMS; Start at 11:30 Duloxetine HCl (Cymbalta) 60 mg BID PO Last administered on 12/17/18at 12:59; Start 12/17/18 at 12:00 Gabapentin (Neurontin) 600 mg BID PO Last administered on 12/17/18at 12:58; Start 12/17/18 at 12:00 Losartan Potassium (Cozaar) 100 mg DAILY PO Last administered on 12/17/18at 12: 59; Start 12/17/18 at 12:00 Hydrochlorothiazide (Hydrodiuril) 25 mg DAILY PO Last administered on at 13:00; Start 12/17/18 at 12:00 Metformin HCl (Glucophage) 1,000 mg BIDWMEALS PO ; Start 12/17/18 at 17:00 Ziprasidone (Geodon) 40 mg TID PO Last administered on 12/17/18at 14:45; Start 12/17/18 at 14:00 Insulin Human Lispro (HumaLOG) 0-7 UNITS TIDWMEALS SQ Last administered on 12/17at 14:50; Start 12/17/18 at 12:00 Dextrose (Dextrose 50%-Water Syringe) 12.5 gm PRN Q15MIN PRN IV SEE COMMENTS; Start 12/17/18 at 11:15 Lactobacillus Rhamnosus (Culturelle) 1 cap BID PO ; Start 12/17/18 at 21:00 Dicyclomine HCl (Bentyl) 10 mg [id number] PO Last administered on 12/17/18at 14:45 ; Start 12/17/18 at 13:15 Active Scripts Active [place] 5-325 Tablet (Acetaminophen/Hydrocodone Bitart) 1 Each Tablet 1 Tab PO Q6HRS Metformin Hcl 1,000 Mg Tablet 1,000 Mg PO BIDWMEALS 30 Days Aspir 81 (Aspirin) 81 Mg Tablet. 1 Tab PO DAILY [place] [id number] Lanct-Str (Lancets/Blood Glucose Strips) 1 Each Combo..pkg 1 Each MC Cyclobenzaprine Hcl 5 Mg Tablet 5 Mg PO TID PRN Reported Geodon (Ziprasidone Hcl) 40 Mg Capsule 1 Cap PO TID Cymbalta (Duloxetine Hcl) 60 Mg Capsule.dr 1 Cap PO BID Amlodipine Besylate 10 Mg Tablet 10 Mg PO DAILY Losartan Potassium 100 Mg Tablet 100 Mg PO DAILY Gabapentin 600 Mg Tablet 600 Mg PO BID Metformin Hcl 1,000 Mg Tablet 1,000 Mg PO BIDWMEALS Losartan-Hctz 100-25 Mg Tab (Losartan/Hydrochlorothiazide) 1 Each Tablet 1 Tab PO DAILY [gabapentin ] Allergies Allergies: Coded Allergies: iodine (Verified Allergy, Severe, Anaphylaxis, 12/17/18) shellfish derived (Verified Allergy, Severe, Anaphylaxis, 12/17/18) latex (Verified Allergy, Intermediate, Rash, 12/17/18) ROS Review of System negative with exception of present complaints Physical Exam General: Alert, Cooperative, No acute distress, Other (jsut finished a regular tray for lunch) HEENT: Atraumatic Lungs: Normal air movement Heart: Regular rate Abdomen: Soft Vitals VITALS Vital Signs Date Time Temp Pulse Resp B/P (MAP) Pulse Ox O2 Delivery O2 Flow Rate FiO2 12/17/18 13:03 95 Room Air 96.0 12/17/18 12:59 82 156/98 12/17/18 11:28 97.9 18 97.9 Labs Labs Laboratory Tests Test 12/16/18 15:30 12/16/18 16:10 12/16/18 21:04 12/17/18 03:40 White Blood Count 9.3 x10^3/uL (4.0-11.0) 8.0 x10^3/uL (4.0-11.0) Red Blood Count 5.34 x10^6/uL (4.30-5.70) 4.81 x10^6/uL (4.30-5.70) Hemoglobin 13.9 g/dL (13.0-17.5) 12.8 g/dL (13.0-17.5) Hematocrit 43.5 % (39.0-53.0) 39.4 % (39.0-53.0) Mean Corpuscular Volume 82 fL (79-100) 82 fL (79-100) Mean Corpuscular Hemoglobin 26 pg (25-35) 27 pg (25-35) Mean Corpuscular Hemoglobin Concent 32 g/dL (31-37) 32 g/dL (31-37) Red Cell Distribution Width 14.5 % (11.5-14.5) 14.6 % (11.5-14.5) Platelet Count 395 x10^3/uL (140-400) 350 x10^3/uL (140-400) Neutrophils (%) (Auto) 65 % (31-73) 59 % (31-73) Lymphocytes (%) (Auto) 27 % (24-48) 30 % (24-48) Monocytes (%) (Auto) 7 % (0-9) 9 % (0-9) Eosinophils (%) (Auto) 1 % (0-3) 2 % (0-3) Basophils (%) (Auto) 1 % (0-3) 0 % (0-3) Neutrophils # (Auto) 6.1 x10^3uL (1.8-7.7) 4.7 x10^3uL (1.8-7.7) Lymphocytes # (Auto) 2.5 x10^3/uL (1.0-4.8) 2.4 x10^3/uL (1.0-4.8) Monocytes # (Auto) 0.6 x10^3/uL (0.0-1.1) 0.7 x10^3/uL (0.0-1.1) Eosinophils # (Auto) 0.0 x10^3/uL (0.0-0.7) 0.1 x10^3/uL (0.0-0.7) Basophils # (Auto) 0.1 x10^3/uL (0.0-0.2) 0.0 x10^3/uL (0.0-0.2) Sodium Level 135 mmol/L (136-145) 137 mmol/L (136-145) Potassium Level 3.6 mmol/L (3.5-5.1) 3.8 mmol/L (3.5-5.1) Chloride Level 101 mmol/L (98-107) 102 mmol/L (98-107) Carbon Dioxide Level 26 mmol/L (21-32) 26 mmol/L (21-32) Anion Gap 8 (6-14) 9 (6-14) Blood Urea Nitrogen 10 mg/dL (8-26) 7 mg/dL (8-26) Creatinine 1.0 mg/dL (0.7-1.3) 0.9 mg/dL (0.7-1.3) Estimated GFR (Cockcroft-Gault) 93.9 106.0 BUN/Creatinine Ratio 10 (6-20) 8 (6-20) Glucose Level 369 mg/dL (70-99) 271 mg/dL (70-99) Lactic Acid Level 2.4 mmol/L (0.4-2.0) 1.1 mmol/L (0.4-2.0) Calcium Level 10.0 mg/dL (8.5-10.1) 8.7 mg/dL (8.5-10.1) Total Bilirubin 0.6 mg/dL (0.2-1.0) 0.8 mg/dL (0.2-1.0) Aspartate Amino Transf (AST/SGOT) 11 U/L (15-37) 10 U/L (15-37) Alanine Aminotransferase (ALT/SGPT) 23 U/L (16-63) 20 U/L (16-63) Alkaline Phosphatase 100 U/L (46-116) 82 U/L (46-116) Troponin I Quantitative < 0.017 ng/mL (0.000-0.055) Total Protein 8.2 g/dL (6.4-8.2) 7.0 g/dL (6.4-8.2) Albumin 3.7 g/dL (3.4-5.0) 3.3 g/dL (3.4-5.0) Albumin/Globulin Ratio 0.8 (1.0-1.7) 0.9 (1.0-1.7) Lipase 205 U/L (73-393) 83 U/L (73-393) Urine Collection Type Void Urine Color Yellow Urine Clarity Cloudy Urine pH 6.0 Urine Specific [place] >=1.030 Urine Protein Negative mg/dL (NEG-TRACE) Urine Glucose (UA) >=1000 mg/dL (NEG) Urine Ketones (Stick) Trace mg/dL (NEG) Urine Blood Negative (NEG) Urine Nitrite Negative (NEG) Urine Bilirubin Negative (NEG) Urine Urobilinogen Dipstick 0.2 mg/dL (0.2 mg/dL) Urine Leukocyte Esterase Negative (NEG) Urine RBC Occ /HPF (0-2) Urine WBC 1-4 /HPF (0-4) Urine Squamous Epithelial Cells Occ /LPF Urine Bacteria 0 /HPF (0-FEW) Urine Hyaline Casts Occasional /HPF Urine Mucus Slight /LPF Glucose (Fingerstick) 255 mg/dL (70-99) Amylase Level 63 U/L (25-115) Test 12/17/18 07:47 12/17/18 11:46 Glucose (Fingerstick) 274 mg/dL (70-99) 271 mg/dL (70-99) Laboratory Tests Test 12/16/18 15:30 12/16/18 16:10 12/16/18 21:04 12/17/18 03:40 White Blood Count 9.3 x10^3/uL (4.0-11.0) 8.0 x10^3/uL (4.0-11.0) Red Blood Count 5.34 x10^6/uL (4.30-5.70) 4.81 x10^6/uL (4.30-5.70) Hemoglobin 13.9 g/dL (13.0-17.5) 12.8 g/dL (13.0-17.5) Hematocrit 43.5 % (39.0-53.0) 39.4 % (39.0-53.0) Mean Corpuscular Volume 82 fL (79-100) 82 fL (79-100) Mean Corpuscular Hemoglobin 26 pg (25-35) 27 pg (25-35) Mean Corpuscular Hemoglobin Concent 32 g/dL (31-37) 32 g/dL (31-37) Red Cell Distribution Width 14.5 % (11.5-14.5) 14.6 % (11.5-14.5) Platelet Count 395 x10^3/uL (140-400) 350 x10^3/uL (140-400) Neutrophils (%) (Auto) 65 % (31-73) 59 % (31-73) Lymphocytes (%) (Auto) 27 % (24-48) 30 % (24-48) Monocytes (%) (Auto) 7 % (0-9) 9 % (0-9) Eosinophils (%) (Auto) 1 % (0-3) 2 % (0-3) Basophils (%) (Auto) 1 % (0-3) 0 % (0-3) Neutrophils # (Auto) 6.1 x10^3uL (1.8-7.7) 4.7 x10^3uL (1.8-7.7) Lymphocytes # (Auto) 2.5 x10^3/uL (1.0-4.8) 2.4 x10^3/uL (1.0-4.8) Monocytes # (Auto) 0.6 x10^3/uL (0.0-1.1) 0.7 x10^3/uL (0.0-1.1) Eosinophils # (Auto) 0.0 x10^3/uL (0.0-0.7) 0.1 x10^3/uL (0.0-0.7) Basophils # (Auto) 0.1 x10^3/uL (0.0-0.2) 0.0 x10^3/uL (0.0-0.2) Sodium Level 135 mmol/L (136-145) 137 mmol/L (136-145) Potassium Level 3.6 mmol/L (3.5-5.1) 3.8 mmol/L (3.5-5.1) Chloride Level 101 mmol/L (98-107) 102 mmol/L (98-107) Carbon Dioxide Level 26 mmol/L (21-32) 26 mmol/L (21-32) Anion Gap 8 (6-14) 9 (6-14) Blood Urea Nitrogen 10 mg/dL (8-26) 7 mg/dL (8-26) Creatinine 1.0 mg/dL (0.7-1.3) 0.9 mg/dL (0.7-1.3) Estimated GFR (Cockcroft-Gault) 93.9 106.0 BUN/Creatinine Ratio 10 (6-20) 8 (6-20) Glucose Level 369 mg/dL (70-99) 271 mg/dL (70-99) Lactic Acid Level 2.4 mmol/L (0.4-2.0) 1.1 mmol/L (0.4-2.0) Calcium Level 10.0 mg/dL (8.5-10.1) 8.7 mg/dL (8.5-10.1) Total Bilirubin 0.6 mg/dL (0.2-1.0) 0.8 mg/dL (0.2-1.0) Aspartate Amino Transf (AST/SGOT) 11 U/L (15-37) 10 U/L (15-37) Alanine Aminotransferase (ALT/SGPT) 23 U/L (16-63) 20 U/L (16-63) Alkaline Phosphatase 100 U/L (46-116) 82 U/L (46-116) Troponin I Quantitative < 0.017 ng/mL (0.000-0.055) Total Protein 8.2 g/dL (6.4-8.2) 7.0 g/dL (6.4-8.2) Albumin 3.7 g/dL (3.4-5.0) 3.3 g/dL (3.4-5.0) Albumin/Globulin Ratio 0.8 (1.0-1.7) 0.9 (1.0-1.7) Lipase 205 U/L (73-393) 83 U/L (73-393) Urine Collection Type Void Urine Color Yellow Urine Clarity Cloudy Urine pH 6.0 Urine Specific [place] >=1.030 Urine Protein Negative mg/dL (NEG-TRACE) Urine Glucose (UA) >=1000 mg/dL (NEG) Urine Ketones (Stick) Trace mg/dL (NEG) Urine Blood Negative (NEG) Urine Nitrite Negative (NEG) Urine Bilirubin Negative (NEG) Urine Urobilinogen Dipstick 0.2 mg/dL (0.2 mg/dL) Urine Leukocyte Esterase Negative (NEG) Urine RBC Occ /HPF (0-2) Urine WBC 1-4 /HPF (0-4) Urine Squamous Epithelial Cells Occ /LPF Urine Bacteria 0 /HPF (0-FEW) Urine Hyaline Casts Occasional /HPF Urine Mucus Slight /LPF Glucose (Fingerstick) 255 mg/dL (70-99) Amylase Level 63 U/L (25-115) Test 12/17/18 07:47 12/17/18 11:46 Glucose (Fingerstick) 274 mg/dL (70-99) 271 mg/dL (70-99) Images Images CT on admission is reviewed Assessment/Plan Assessment/Plan left sided abdominal pain, uncertain etiology gall stone, sx? bipolar diabetes consider elective cholecystectomy given presence of stone and his diabetes will follow with you Thanks for consult NELLY LORENZO MD Dec 17, 2018 15:15
[2018-12-17 15:50] VITALS: BP 158/92
[2018-12-17] MEDS: metFORMIN 500 MG TABLET PO SCH (18:03)
[2018-12-17] MEDS: HYDROcodone/APAP 5/325MG 1 TAB TABLET PO PRN (18:05)
[2018-12-17 19:40] VITALS: BP 123/75
[2018-12-17] MEDS: LACTOBACILLUS RHAMNOSUS GG 1 CAPSULE. PO SCH (20:26)
[2018-12-17 23:45] VITALS: BP 107/68
--- NOTE | 2018-12-18 00:41 | CONS ---
DATE OF CONSULTATION: 12/17/2018 ADMITTING PHYSICIAN: Franco Barber MD CHIEF COMPLAINT: Left lower quadrant pain, dyspepsia. HISTORY OF PRESENT ILLNESS: This is a 53-year-old gentleman who was admitted with 1-week history of left lower quadrant abdominal pain. He describes it as achy pain, unrelenting, but not associated with any bowel complaints. He says he has a regular bowel movement and the bowel movement has not affected the pain. It is not associated with sharp pain, fevers or rectal bleeding. He also has a history of bipolar disorder and anxiety and is very anxious about these symptoms. He describes chronic dyspepsia and acid churning in his stomach, which is not changed and he has been on a chronic therapy for this with some relief. He denies any right upper quadrant pain or vomiting, but does have a large gallstone noted on CT, but without inflammation. He is concerned about these symptoms and we were asked to see him. In reviewing his chart, he had an upper endoscopy last year that apparently just showed some reflux by Dr. Alexandr Sehll. His laboratories show no elevation in white count. He did have an increase in lactic acid initially and a high glucose, but his liver function studies and lipase were normal. Imaging revealed the gallstone as mentioned above without obstructive changes. The left lower quadrant is unremarkable. There are no noted abnormalities appreciated. However, he said his last colonoscopy was many years ago. He would like to have a colonoscopy to evaluate these symptoms. PAST MEDICAL HISTORY: Bipolar disorder, anxiety, diabetes, hypertension, hyperlipidemia, kidney stones, fibromyalgia, and neuropathy. PAST SURGICAL HISTORY: Appendectomy, tonsillectomy, ankle surgery and knee surgery. MEDICATIONS: At home include amlodipine, hydrocodone, cyclobenzaprine, Cymbalta, gabapentin, losartan, metformin, Geodon. ALLERGIES: IODINE, SHELLFISH, and LATEX. SOCIAL HISTORY: He does smoke. He does not drink alcohol, does not use illicit drugs. FAMILY HISTORY: Positive for heart disease. for diabetes and hypertension, but denies any GI related disorders. REVIEW OF SYSTEMS: CONSTITUTIONAL: Anxiety, but no fever or chills. HEENT: No headache or blurred vision. PULMONARY: No shortness of breath. CARDIOVASCULAR: No chest pain. GENITOURINARY: No change in urinary pattern, but has a history of kidney stones. NEUROLOGIC: Denies seizures or paralysis. MUSCULOSKELETAL: Denies acute arthritis. PSYCHIATRIC: He has bipolar and anxiety symptoms. PHYSICAL EXAMINATION: GENERAL: He is awake and alert. VITAL SIGNS: He is afebrile, blood pressure is 156/98, pulse is 82, respirations 18. He is anxious and has somewhat of a tremor bilaterally. He is anicteric. CHEST: Clear. HEART: Regular rate and rhythm. ABDOMEN: He is obese. Bowel sounds are present, soft. There is mild tenderness in the left lower quadrant without point tenderness or mass. There is no tenderness in the epigastrium and there is no tenderness in the right upper quadrant. Bowel sounds are normal. RECTAL: Deferred. EXTREMITIES: No cyanosis, clubbing or edema. NEUROLOGIC: Alert and oriented, tremulous, but no focal deficits. LABORATORY DATA: Hemoglobin 12.8, white blood cell count is 8000. Chemistries are normal. Glucose is 271. Liver function studies are normal. Lipase normal at 83. IMAGING: As mentioned above. ASSESSMENT: 1. Left lower quadrant pain. He describes it as achy pain this week, not associated with bowel changes and there are no symptoms related to his bowel habits. He denies any sharp pain. He denies any fevers and he has had no rectal bleeding. Possibility of spasm and diverticular disease all must be considered, although diverticulitis or inflammation was not seen on the CT scan. He has not had a colonoscopy in quite some time and a colonoscopy would be warranted and he is agreeable to proceed. 2. Gallstone. This was found on his imaging studies, but does not seem to be symptomatic. He does not have any typical nausea, vomiting or abdominal pain symptoms that might relate to acute cholecystitis. We will need to observe this, but this is unlikely to represent the source of his symptoms. 3. Dyspepsia and heartburn. He describes it as a churning in his stomach on a fairly regular basis. He describes it as chewing up the food, but denies any nausea or vomiting. Use of a proton pump inhibitor would be appropriate. PLAN: 1. P.r.n. use of dicyclomine. 2. We will proceed with colonoscopy since he ate a solid meal today. It cannot be performed tomorrow, but will be arranged for Wednesday as long as he remains an inpatient. HANNAH COONEY MD DR: FINESSE/lorenzo JOB#: [id number] / [id number]
[2018-12-18 03:50] VITALS: BP 138/87
[2018-12-18 05:44] LABS: CHOLESTEROL/HDL RATIO 5.1
[2018-12-18 07:00] VITALS: BP 141/74
[2018-12-18] MEDS: LOSARTAN POTASSIUM 50 MG TABLET. PO SCH (08:49)
[2018-12-18] MEDS: DICYCLOMINE HCL 10 MG CAPSULE PO SCH ×4 (08:49→20:46)
[2018-12-18] MEDS: HYDROcodone/APAP 5/325MG 1 TAB TABLET PO PRN ×2 (08:49→15:43)
[2018-12-18] MEDS: ASPIRIN ENTERIC COATED 81 MG TABLET.DR. PO SCH (08:50)
[2018-12-18] MEDS: GABAPENTIN 300 MG CAPSULE. PO SCH ×2 (08:50→20:46)
[2018-12-18] MEDS: amLODIPine BESYLATE 10 MG TABLET PO SCH (08:50)
[2018-12-18] MEDS: metFORMIN 500 MG TABLET PO SCH ×2 (08:50→17:53)
[2018-12-18] MEDS: LACTOBACILLUS RHAMNOSUS GG 1 CAPSULE. PO SCH ×2 (08:50→20:47)
[2018-12-18] MEDS: DULoxetine HCL 30 MG CAPSULE.DR PO SCH ×2 (08:51→20:46)
[2018-12-18] MEDS: ZIPRASIDONE 20 MG CAPSULE PO SCH ×3 (08:51→20:46)
[2018-12-18] MEDS: hydroCHLOROthiazide 25 MG TABLET PO SCH (08:51)
[2018-12-18] MEDS: INSULIN LISPRO 300 UNITS/3 ML INSULN.PEN. SQ SCH ×3 (08:57→18:02)
--- NOTE | 2018-12-18 09:20 | PDOC ---
GI PROGRESS NOTES Date Date/Time DATE: 12/18/18 TIME: 09:15 Subjective Subjective some LLQ pain- better with pain med- wants to proceed with colonoscopy Objective Vitals Vital Signs Date Time Temp Pulse Resp B/P (MAP) Pulse Ox O2 Delivery O2 Flow Rate FiO2 12/18/18 08:50 77 141/74 12/18/18 08:49 77 141/74 12/18/18 08:49 Room Air 12/18/18 07:00 97.6 77 18 141/74 (96) 93 Room Air 97.6 12/18/18 03:50 98.4 83 20 138/87 (104) 92 Room Air 98.4 12/17/18 23:45 98.1 87 18 107/68 (81) 93 Room Air 98.1 12/17/18 20:03 94 Room Air 12/17/18 20:00 Room Air 12/17/18 19:40 97.5 107 18 123/75 (91) 99 Room Air 97.5 12/17/18 18:05 94 Room Air 96.0 12/17/18 15:50 98.2 83 18 158/92 (114) 94 Room Air 98.2 12/17/18 13:40 95 Room Air 96.0 12/17/18 13:03 95 Room Air 96.0 12/17/18 12:59 82 156/98 12/17/18 12:58 82 156/98 12/17/18 11:28 97.9 82 18 156/98 (117) 95 Room Air 97.9 12/17/18 10:16 93 Room Air 96.0 Labs Labs Laboratory Tests Test 12/17/18 11:46 12/17/18 16:58 12/17/18 20:58 12/18/18 04:20 Glucose (Fingerstick) 271 mg/dL (70-99) 379 mg/dL (70-99) 395 mg/dL (70-99) Triglycerides Level 116 mg/dL (0-150) Cholesterol Level 230 mg/dL (0-200) LDL Cholesterol, Calculated 162 mg/dL (0-100) VLDL Cholesterol, Calculated 23 mg/dL (0-40) Non-HDL Cholesterol Calculated 185 mg/dL (0-129) HDL Cholesterol 45 mg/dL (40-60) Cholesterol/HDL Ratio 5.1 Thyroid Stimulating Hormone (TSH) 1.195 uIU/mL (0.358-3.74) Test 12/18/18 07:47 Glucose (Fingerstick) 278 mg/dL (70-99) Physical Exam Physical Exam anxious chest- clear abd- soft mildly tender LLQ good bowel sounds Assessment Assessment LLQ pain- with normal CT- will give dicyclomine and proceed with colonoscopy Gallstone- in past, some dyspeptic symptoms but no classic biliary symptoms now - had EGD last year - negative- Dr. Cee has seen and is planning elective surgery in the future Plan Plan Bowel prep and colonoscopy tomorrow with HANNAH Solomon MD Dec 18, 2018 09:20
--- NOTE | 2018-12-18 10:59 | PDOC ---
PROGRESS NOTES Subjective Subjective less abd pain Objective Objective Vital Signs Date Time Temp Pulse Resp B/P (MAP) Pulse Ox O2 Delivery O2 Flow Rate FiO2 12/18/18 09:55 Room Air 12/18/18 08:50 77 141/74 12/18/18 07:00 97.6 18 93 97.6 12/17/18 18:05 96.0 Intake and Output 12/18/18 07:01 Intake Total 3850 ml Output Total 1650 ml Balance 2200 ml Intake Oral 3850 ml Output Urine Total 1650 ml # Voids 2 Physical Exam Abdomen: Soft Heart: Regular rate General: Alert, Cooperative, No acute distress, Other (jsut finished a regular tray for lunch) HEENT: Atraumatic Lungs: Normal air movement MUSCULOSKELETAL: No deformity Neck: No JVD Neuro: Normal speech Psych/Mental Status: Mental status NL Skin: No breakdown Diagnosis Problem List Problems Medical Problems: (1) Intractable abdominal pain Status: Acute Assessment Assessment Problems Medical Problems: (1) Intractable abdominal pain Status: Acute FINAL IMPRESSION: 1. Abdominal pain, left lower quadrant, possible diverticulosis. 2. Asymptomatic gallstones. 3. Diabetes. 4. Hypertension. 5. Hyperlipidemia. 6. History of bipolar, on Geodon. 7. Lactic acidosis. PLAN: clear liquid diet today colonoscopy tomorrow labs good lactic acid down amylase and lipase normal CT abd and pelvis ok cxr -neg. At this time, he was given IV fluids and his belly is soft today. He is on clear liquid, advance as tolerated. Resume home medications. GI was consulted and see how the patient improves in the next 24-48 hours. DVT prevention and fingersticks. Plan Plan of Care Problems Medical Problems: (1) Intractable abdominal pain Status: Acute Comment Review of Relevant I have reviewed the following items chad (where applicable) has been applied. Labs Laboratory Tests Test 12/17/18 11:46 12/17/18 16:58 12/17/18 20:58 12/18/18 04:20 Glucose (Fingerstick) 271 mg/dL (70-99) 379 mg/dL (70-99) 395 mg/dL (70-99) Triglycerides Level 116 mg/dL (0-150) Cholesterol Level 230 mg/dL (0-200) LDL Cholesterol, Calculated 162 mg/dL (0-100) VLDL Cholesterol, Calculated 23 mg/dL (0-40) Non-HDL Cholesterol Calculated 185 mg/dL (0-129) HDL Cholesterol 45 mg/dL (40-60) Cholesterol/HDL Ratio 5.1 Thyroid Stimulating Hormone (TSH) 1.195 uIU/mL (0.358-3.74) Test 12/18/18 07:47 Glucose (Fingerstick) 278 mg/dL (70-99) Microbiology 12/16/18 Blood Culture - Preliminary, Resulted NO GROWTH AFTER 1 DAY Medications Current Medications Acetaminophen/ Hydrocodone Bitart (Lortab 5/325) 1 tab PRN Q6HRS PRN PO PAIN Last administered on 12/18/18 08:49; Start 12/17/18 at 12:00 Amlodipine Besylate (Norvasc) 10 mg DAILY PO Last administered on 12/18/18 08: 50; Start 12/17/18 at 12:00 Aspirin (Ecotrin) 81 mg DAILY PO Last administered on 12/18/18 08:50; Start at 12:00 Bisacodyl (Dulcolax Tab) 10 mg 1X ONCE PO ; Start 12/18/18 at 12:15; Stop 12/18 at 12:16 Cyclobenzaprine HCl (Flexeril) 5 mg PRN TID PRN PO MUSCLE SPASMS; Start at 11:30 Dextrose (Dextrose 50%-Water Syringe) 12.5 gm PRN Q15MIN PRN IV SEE COMMENTS; Start 12/17/18 at 11:15 Dicyclomine HCl (Bentyl) 10 mg [id number] PO Last administered on 12/18/18 08:49 ; Start 12/17/18 at 13:15 Duloxetine HCl (Cymbalta) 60 mg BID PO Last administered on 12/18/18 08:51; Start 12/17/18 at 12:00 Gabapentin (Neurontin) 600 mg BID PO Last administered on 12/18/18 08:50; Start 12/17/18 at 12:00 Hydrochlorothiazide (Hydrodiuril) 25 mg DAILY PO Last administered on 08:51; Start 12/17/18 at 12:00 Insulin Human Lispro (HumaLOG) 0-7 UNITS TIDWMEALS SQ Last administered on 12/18 08:57; Start 12/17/18 at 12:00 Lactobacillus Rhamnosus (Culturelle) 1 cap BID PO Last administered on at 08:50; Start 12/17/18 at 21:00 Losartan Potassium (Cozaar) 100 mg DAILY PO Last administered on 12/18/18at 08: 49; Start 12/17/18 at 12:00 Magnesium Citrate (Citroma) 296 ml 1X ONCE PO ; Start 12/19/18 at 08:00; Stop 12/19/18 at 08:01 Metformin HCl (Glucophage) 1,000 mg BIDWMEALS PO Last administered on at 08:50; Start 12/17/18 at 17:00 Polyethylene Glycol (miraLAX Powder BULK BOTTLE) 238 gm 1X ONCE PO ; Start at 15:00; Stop 12/18/18 at 15:01 Ziprasidone (Geodon) 40 mg TID PO Last administered on 12/18/18at 08:51; Start 12/17/18 at 14:00 Vitals/I & O Vital Sign - Last 24 Hours 12/17/18 12/17/18 12/17/18 12/17/18 11:28 12:58 12:59 13:03 Temp 97.9 97.9 Pulse 82 82 82 Resp 18 B/P (MAP) 156/98 (117) 156/98 156/98 Pulse Ox 95 95 O2 Delivery Room Air Room Air O2 Flow Rate 96.0 12/17/18 12/17/18 12/17/18 12/17/18 13:40 15:50 18:05 19:40 Temp 98.2 97.5 98.2 97.5 Pulse 83 107 Resp 18 18 B/P (MAP) 158/92 (114) 123/75 (91) Pulse Ox 95 94 94 99 O2 Delivery Room Air Room Air Room Air Room Air O2 Flow Rate 96.0 96.0 12/17/18 12/17/18 12/17/18 12/18/18 20:00 20:03 23:45 03:50 Temp 98.1 98.4 98.1 98.4 Pulse 87 83 Resp 18 20 B/P (MAP) 107/68 (81) 138/87 (104) Pulse Ox 94 93 92 O2 Delivery Room Air Room Air Room Air 12/18/18 12/18/18 12/18/1819 07:00 08:49 08:49 08:50 Temp 97.6 97.6 Pulse 77 77 77 Resp 18 B/P (MAP) 141/74 (96) 141/74 141/74 Pulse Ox 93 O2 Delivery Room Air Room Air 12/18/18 09:55 O2 Delivery Room Air Intake and Output 12/17/18 12/17/18 12/18/18 15:01 23:01 07:01 Intake Total 600 ml 1650 ml 1600 ml Output Total 600 ml 1050 ml Balance 0 ml 600 ml 1600 ml NICOLE SANDERS MD Dec 18, 2018 10:59
[2018-12-18 11:00] VITALS: BP 103/68
[2018-12-18] MEDS ORDERED: BISACODYL 5 MG TABLET.DR. PO ONE (12:15)
[2018-12-18 15:00] VITALS: BP 112/78
[2018-12-18] MEDS ORDERED: POLYETHYLENE GLYCOL 3350 BTL 238 GM POWDER PO ONE (15:00)
--- NOTE | 2018-12-18 15:00 | PDOC ---
SURGICAL PROGRESS NOTE Subjective no new complaints Vital Signs Vital Signs Date Time Temp Pulse Resp B/P (MAP) Pulse Ox O2 Delivery O2 Flow Rate FiO2 12/18/18 11:00 97.3 90 18 103/68 (80) 93 Room Air 97.3 12/18/18 08:00 96.0 I&O Intake and Output 12/18/18 07:01 Intake Total 3850 ml Output Total 1650 ml Balance 2200 ml Intake Oral 3850 ml Output Urine Total 1650 ml # Voids 2 PATIENT HAS A ROCHA: No General: Alert, No acute distress Abdomen: Soft, Other (minimal left sided tenderness) Labs Laboratory Tests Test 12/16/18 15:30 12/16/18 16:10 12/16/18 21:04 12/17/18 03:40 White Blood Count 9.3 x10^3/uL (4.0-11.0) 8.0 x10^3/uL (4.0-11.0) Red Blood Count 5.34 x10^6/uL (4.30-5.70) 4.81 x10^6/uL (4.30-5.70) Hemoglobin 13.9 g/dL (13.0-17.5) 12.8 g/dL (13.0-17.5) Hematocrit 43.5 % (39.0-53.0) 39.4 % (39.0-53.0) Mean Corpuscular Volume 82 fL (79-100) 82 fL (79-100) Mean Corpuscular Hemoglobin 26 pg (25-35) 27 pg (25-35) Mean Corpuscular Hemoglobin Concent 32 g/dL (31-37) 32 g/dL (31-37) Red Cell Distribution Width 14.5 % (11.5-14.5) 14.6 % (11.5-14.5) Platelet Count 395 x10^3/uL (140-400) 350 x10^3/uL (140-400) Neutrophils (%) (Auto) 65 % (31-73) 59 % (31-73) Lymphocytes (%) (Auto) 27 % (24-48) 30 % (24-48) Monocytes (%) (Auto) 7 % (0-9) 9 % (0-9) Eosinophils (%) (Auto) 1 % (0-3) 2 % (0-3) Basophils (%) (Auto) 1 % (0-3) 0 % (0-3) Neutrophils # (Auto) 6.1 x10^3uL (1.8-7.7) 4.7 x10^3uL (1.8-7.7) Lymphocytes # (Auto) 2.5 x10^3/uL (1.0-4.8) 2.4 x10^3/uL (1.0-4.8) Monocytes # (Auto) 0.6 x10^3/uL (0.0-1.1) 0.7 x10^3/uL (0.0-1.1) Eosinophils # (Auto) 0.0 x10^3/uL (0.0-0.7) 0.1 x10^3/uL (0.0-0.7) Basophils # (Auto) 0.1 x10^3/uL (0.0-0.2) 0.0 x10^3/uL (0.0-0.2) Sodium Level 135 mmol/L (136-145) 137 mmol/L (136-145) Potassium Level 3.6 mmol/L (3.5-5.1) 3.8 mmol/L (3.5-5.1) Chloride Level 101 mmol/L (98-107) 102 mmol/L (98-107) Carbon Dioxide Level 26 mmol/L (21-32) 26 mmol/L (21-32) Anion Gap 8 (6-14) 9 (6-14) Blood Urea Nitrogen 10 mg/dL (8-26) 7 mg/dL (8-26) Creatinine 1.0 mg/dL (0.7-1.3) 0.9 mg/dL (0.7-1.3) Estimated GFR (Cockcroft-Gault) 93.9 106.0 BUN/Creatinine Ratio 10 (6-20) 8 (6-20) Glucose Level 369 mg/dL (70-99) 271 mg/dL (70-99) Lactic Acid Level 2.4 mmol/L (0.4-2.0) 1.1 mmol/L (0.4-2.0) Calcium Level 10.0 mg/dL (8.5-10.1) 8.7 mg/dL (8.5-10.1) Total Bilirubin 0.6 mg/dL (0.2-1.0) 0.8 mg/dL (0.2-1.0) Aspartate Amino Transf (AST/SGOT) 11 U/L (15-37) 10 U/L (15-37) Alanine Aminotransferase (ALT/SGPT) 23 U/L (16-63) 20 U/L (16-63) Alkaline Phosphatase 100 U/L (46-116) 82 U/L (46-116) Troponin I Quantitative < 0.017 ng/mL (0.000-0.055) Total Protein 8.2 g/dL (6.4-8.2) 7.0 g/dL (6.4-8.2) Albumin 3.7 g/dL (3.4-5.0) 3.3 g/dL (3.4-5.0) Albumin/Globulin Ratio 0.8 (1.0-1.7) 0.9 (1.0-1.7) Lipase 205 U/L (73-393) 83 U/L (73-393) Urine Collection Type Void Urine Color Yellow Urine Clarity Cloudy Urine pH 6.0 Urine Specific [place] >=1.030 Urine Protein Negative mg/dL (NEG-TRACE) Urine Glucose (UA) >=1000 mg/dL (NEG) Urine Ketones (Stick) Trace mg/dL (NEG) Urine Blood Negative (NEG) Urine Nitrite Negative (NEG) Urine Bilirubin Negative (NEG) Urine Urobilinogen Dipstick 0.2 mg/dL (0.2 mg/dL) Urine Leukocyte Esterase Negative (NEG) Urine RBC Occ /HPF (0-2) Urine WBC 1-4 /HPF (0-4) Urine Squamous Epithelial Cells Occ /LPF Urine Bacteria 0 /HPF (0-FEW) Urine Hyaline Casts Occasional /HPF Urine Mucus Slight /LPF Glucose (Fingerstick) 255 mg/dL (70-99) Amylase Level 63 U/L (25-115) Test 12/17/18 07:47 12/17/18 11:46 12/17/18 16:58 12/17/18 20:58 Glucose (Fingerstick) 274 mg/dL (70-99) 271 mg/dL (70-99) 379 mg/dL (70-99) 395 mg/dL (70-99) Test 12/18/18 04:20 12/18/18 07:47 12/18/18 12:01 Triglycerides Level 116 mg/dL (0-150) Cholesterol Level 230 mg/dL (0-200) LDL Cholesterol, Calculated 162 mg/dL (0-100) VLDL Cholesterol, Calculated 23 mg/dL (0-40) Non-HDL Cholesterol Calculated 185 mg/dL (0-129) HDL Cholesterol 45 mg/dL (40-60) Cholesterol/HDL Ratio 5.1 Thyroid Stimulating Hormone (TSH) 1.195 uIU/mL (0.358-3.74) Glucose (Fingerstick) 278 mg/dL (70-99) 341 mg/dL (70-99) Laboratory Tests Test 12/17/18 16:58 12/17/18 20:58 12/18/18 04:20 12/18/18 07:47 Glucose (Fingerstick) 379 mg/dL (70-99) 395 mg/dL (70-99) 278 mg/dL (70-99) Triglycerides Level 116 mg/dL (0-150) Cholesterol Level 230 mg/dL (0-200) LDL Cholesterol, Calculated 162 mg/dL (0-100) VLDL Cholesterol, Calculated 23 mg/dL (0-40) Non-HDL Cholesterol Calculated 185 mg/dL (0-129) HDL Cholesterol 45 mg/dL (40-60) Cholesterol/HDL Ratio 5.1 Thyroid Stimulating Hormone (TSH) 1.195 uIU/mL (0.358-3.74) Test 12/18/18 12:01 Glucose (Fingerstick) 341 mg/dL (70-99) Problem List Problems Medical Problems: (1) Intractable abdominal pain Status: Acute Assessment/Plan LLQ pain cholelithiasis DM for colonoscopy tomorrow NELLY LORENZO MD Dec 18, 2018 15:00
[2018-12-18 19:40] VITALS: BP 125/73
[2018-12-18 23:13] LABS: HEMOGLOBIN A1C 12.7 % (4.8-5.6)
[2018-12-18 23:20] VITALS: BP 94/53
[2018-12-19 03:54] VITALS: BP 125/76
[2018-12-19] MEDS: DICYCLOMINE HCL 10 MG CAPSULE PO SCH ×4 (06:23→22:49)
[2018-12-19 07:35] VITALS: BP 124/82
[2018-12-19] MEDS ORDERED: MAGNESIUM CITRATE 296 ML SOLUTION. PO ONE (08:00)
--- NOTE | 2018-12-19 08:23 | PDOC ---
KATYA HIDALGO PIPE CUTTER 12/19/18 0823: SURGICAL PROGRESS NOTE Subjective left sided abdominal pain--upper and lower mild nausea bowel prep last night Vital Signs Vital Signs Date Time Temp Pulse Resp B/P (MAP) Pulse Ox O2 Delivery O2 Flow Rate FiO2 12/19/18 07:35 99.0 94 18 124/82 (96) 93 Room Air 99.0 12/18/18 16:53 96.0 I&O Intake and Output 12/19/18 07:01 Intake Total 1800 ml Balance 1800 ml Intake Oral 1800 ml # Voids 4 General: Alert, Oriented X3, Cooperative, No acute distress Abdomen: Soft, Other (TTP left abdomen ) Labs Laboratory Tests Test 12/17/18 11:46 12/17/18 16:58 12/17/18 20:58 12/18/18 04:20 Glucose (Fingerstick) 271 mg/dL (70-99) 379 mg/dL (70-99) 395 mg/dL (70-99) Hemoglobin A1c 12.7 % (4.8-5.6) Triglycerides Level 116 mg/dL (0-150) Cholesterol Level 230 mg/dL (0-200) LDL Cholesterol, Calculated 162 mg/dL (0-100) VLDL Cholesterol, Calculated 23 mg/dL (0-40) Non-HDL Cholesterol Calculated 185 mg/dL (0-129) HDL Cholesterol 45 mg/dL (40-60) Cholesterol/HDL Ratio 5.1 Thyroid Stimulating Hormone (TSH) 1.195 uIU/mL (0.358-3.74) Test 12/18/18 07:47 12/18/18 12:01 12/18/18 16:34 12/18/18 19:42 Glucose (Fingerstick) 278 mg/dL (70-99) 341 mg/dL (70-99) 295 mg/dL (70-99) 235 mg/dL (70-99) Test 12/19/18 07:24 Glucose (Fingerstick) 269 mg/dL (70-99) Laboratory Tests Test 12/18/18 12:01 12/18/18 16:34 12/18/18 19:42 12/19/18 07:24 Glucose (Fingerstick) 341 mg/dL (70-99) 295 mg/dL (70-99) 235 mg/dL (70-99) 269 mg/dL (70-99) Problem List Problems Medical Problems: (1) Intractable abdominal pain Status: Acute Assessment/Plan plans for scope today cholelithiasis--possible elective NELLY Silva MD 12/19/18 1824: SURGICAL PROGRESS NOTE Assessment/Plan colonoscopy results noted f/u as outpatient to discuss elective l/s KATYA Carter APRN Dec 19, 2018 08:23 NELLY LORENZO MD Dec 19, 2018 18:24
[2018-12-19] MEDS: LACTOBACILLUS RHAMNOSUS GG 1 CAPSULE. PO SCH ×2 (09:14→22:49)
[2018-12-19] MEDS: metFORMIN 500 MG TABLET PO SCH ×2 (09:14→18:02)
[2018-12-19] MEDS: DULoxetine HCL 30 MG CAPSULE.DR PO SCH ×2 (09:14→22:49)
[2018-12-19] MEDS: hydroCHLOROthiazide 25 MG TABLET PO SCH (09:15)
[2018-12-19] MEDS: GABAPENTIN 300 MG CAPSULE. PO SCH ×2 (09:15→22:50)
[2018-12-19] MEDS: amLODIPine BESYLATE 10 MG TABLET PO SCH (09:15)
[2018-12-19] MEDS: ASPIRIN ENTERIC COATED 81 MG TABLET.DR. PO SCH (09:15)
[2018-12-19] MEDS: LOSARTAN POTASSIUM 50 MG TABLET. PO SCH (09:16)
[2018-12-19] MEDS: HYDROcodone/APAP 5/325MG 1 TAB TABLET PO PRN ×3 (09:16→22:49)
[2018-12-19] MEDS: INSULIN LISPRO 300 UNITS/3 ML INSULN.PEN. SQ SCH ×3 (09:29→18:06)
--- NOTE | 2018-12-19 09:55 | PDOC ---
PROGRESS NOTES Subjective Subjective going for colonoscopy today Objective Objective Vital Signs Date Time Temp Pulse Resp B/P (MAP) Pulse Ox O2 Delivery O2 Flow Rate FiO2 12/19/18 09:16 94 124/82 12/19/18 09:16 93 Room Air 96.0 12/19/18 07:35 99.0 18 99.0 Intake and Output 12/19/18 07:01 Intake Total 1800 ml Balance 1800 ml Intake Oral 1800 ml # Voids 4 Physical Exam Abdomen: Soft, Other (TTP left abdomen ) Heart: Regular rate General: Alert, Oriented X3, Cooperative, No acute distress HEENT: Atraumatic Lungs: Normal air movement MUSCULOSKELETAL: No deformity Neck: No JVD Neuro: Normal speech Psych/Mental Status: Mental status NL Skin: No breakdown Diagnosis Problem List Problems Medical Problems: (1) Intractable abdominal pain Status: Acute Assessment Assessment Problems Medical Problems: (1) Intractable abdominal pain Status: Acute FINAL IMPRESSION: 1. Abdominal pain, left lower quadrant, possible diverticulosis. 2. Asymptomatic gallstones. 3. Diabetes.uncontrolled A1C 12 4. Hypertension. 5. Hyperlipidemia. 6. History of bipolar, on Geodon. 7. Lactic acidosis. PLAN: colonoscopy today lantus 15 u tid+novolog 15 u tid labs good lactic acid down amylase and lipase normal CT abd and pelvis ok cxr -neg. atorvaststin 40 mg at hs Plan Plan of Care Problems Medical Problems: (1) Intractable abdominal pain Status: Acute Comment Review of Relevant I have reviewed the following items chad (where applicable) has been applied. Labs Laboratory Tests Test 12/18/18 12:01 12/18/18 16:34 12/18/18 19:42 12/19/18 07:24 Glucose (Fingerstick) 341 mg/dL (70-99) 295 mg/dL (70-99) 235 mg/dL (70-99) 269 mg/dL (70-99) Microbiology 12/16/18 Blood Culture - Preliminary, Resulted NO GROWTH AFTER 2 DAYS Medications Current Medications Atorvastatin Calcium (Lipitor) 40 mg QHS PO ; Start 12/19/18 at 21:00 Bisacodyl (Dulcolax Tab) 10 mg 1X ONCE PO Last administered on 12/18/18at 13:50 ; Start 12/18/18 at 12:15; Stop 12/18/18 at 12:16; Status DC Insulin Glargine (Lantus) 10 units QHS SQ ; Start 12/19/18 at 21:00 Magnesium Citrate (Citroma) 296 ml 1X ONCE PO Last administered on 12/19/18at 09:13; Start 12/19/18 at 08:00; Stop 12/19/18 at 08:01; Status DC Polyethylene Glycol (miraLAX Powder BULK BOTTLE) 238 gm 1X ONCE PO Last administered on 12/18/18at 15:42; Start 12/18/18 at 15:00; Stop 12/18/18 at 15:01 ; Status DC Vitals/I & O Vital Sign - Last 24 Hours 12/18/18 12/18/18 12/18/18 12/18/18 11:00 15:00 15:43 16:53 Temp 97.3 98.1 97.3 98.1 Pulse 90 102 Resp 18 18 B/P (MAP) 103/68 (80) 112/78 (89) Pulse Ox 93 95 95 O2 Delivery Room Air Room Air Room Air Room Air O2 Flow Rate 96.0 12/18/18 12/18/18 12/18/18 12/19/18 19:40 20:00 23:20 03:54 Temp 98.4 98.1 98.2 98.4 98.1 98.2 Pulse 106 86 85 Resp 20 19 17 B/P (MAP) 125/73 (90) 94/53 (67) 125/76 (92) Pulse Ox 100 94 93 O2 Delivery Room Air Room Air Room Air Room Air 12/19/18 12/19/18 12/19/18 12/19/18 07:35 09:15 09:16 09:16 Temp 99.0 99.0 Pulse 94 94 94 Resp 18 B/P (MAP) 124/82 (96) 124/82 124/82 Pulse Ox 93 93 O2 Delivery Room Air Room Air O2 Flow Rate 96.0 Intake and Output 12/18/18 12/18/18 12/19/18 15:01 23:01 07:01 Intake Total 250 ml 860 ml 690 ml Balance 250 ml 860 ml 690 ml NICOLE SANDERS MD Dec 19, 2018 09:55
[2018-12-19] MEDS: ZIPRASIDONE 20 MG CAPSULE PO SCH ×3 (11:07→22:48)
[2018-12-19 11:30] VITALS: BP 126/89
[2018-12-19] MEDS ORDERED: IV RINGERS,LACTATED 1000ML 1,000 ML IV ONE (13:00)
[2018-12-19] MEDS ORDERED: PROPOFOL 40 ML IV ONE (13:18)
--- NOTE | 2018-12-19 13:47 | PDOC4 ---
Operative Note Operative Note Colonoscopy with polypectomy Meds propofol per anesthesia pre-op dx LLQ abd pain post-op dx internal hemorrhoids hepatic flexure polyp s/p polypectomy plan advance diet sb series as o/p JANE MOLINA MD Dec 19, 2018 13:47
[2018-12-19 15:29] VITALS: BP 110/66
[2018-12-19 19:25] VITALS: BP 131/80
[2018-12-19] MEDS ORDERED: INSULIN GLARGINE 300 UNITS/3 ML INSULN.PEN. SQ SCH (21:00)
[2018-12-19] MEDS ORDERED: ATORVASTATIN CALCIUM 40 MG TABLET. PO SCH (21:00)
[2018-12-19] MEDS: ZOLPIDEM 5 MG TABLET. PO PRN (22:49)
[2018-12-19 23:30] VITALS: BP 100/58
[2018-12-20 03:35] VITALS: BP 121/77
[2018-12-20] MEDS: HYDROcodone/APAP 5/325MG 1 TAB TABLET PO PRN ×2 (05:35→12:24)
[2018-12-20 07:35] VITALS: BP 132/80
[2018-12-20] MEDS: GABAPENTIN 300 MG CAPSULE. PO SCH (08:32)
[2018-12-20] MEDS: DULoxetine HCL 30 MG CAPSULE.DR PO SCH (08:32)
[2018-12-20] MEDS: hydroCHLOROthiazide 25 MG TABLET PO SCH (08:33)
[2018-12-20] MEDS: ZIPRASIDONE 20 MG CAPSULE PO SCH ×2 (08:33→12:30)
[2018-12-20] MEDS: LACTOBACILLUS RHAMNOSUS GG 1 CAPSULE. PO SCH (08:33)
[2018-12-20] MEDS: amLODIPine BESYLATE 10 MG TABLET PO SCH (08:33)
[2018-12-20] MEDS: ASPIRIN ENTERIC COATED 81 MG TABLET.DR. PO SCH (08:33)
[2018-12-20] MEDS: metFORMIN 500 MG TABLET PO SCH (08:33)
[2018-12-20] MEDS: DICYCLOMINE HCL 10 MG CAPSULE PO SCH ×2 (08:33→12:20)
[2018-12-20] MEDS: LOSARTAN POTASSIUM 50 MG TABLET. PO SCH (08:33)
[2018-12-20] MEDS: INSULIN LISPRO 300 UNITS/3 ML INSULN.PEN. SQ SCH ×2 (08:38→12:23)
[2018-12-20] MEDS ORDERED: INSU100C4 SQ (08:42)
[2018-12-20] MEDS ORDERED: ATOR40TA59 PO (08:42)
[2018-12-20] MEDS ORDERED: INSU100I13 SQ (08:42)
--- NOTE | 2018-12-20 08:46 | NUR ---
SW following pt for anticipated dc needs. Chart reviewed and DW RN. Pt lives at home alone and is on Room Air. PT/OT recommends home independent. SW will be available for other dc needs.
[2018-12-20] MEDS ORDERED: INSULIN LISPRO 300 UNITS/3 ML INSULN.PEN. SQ ONE (09:30)
--- NOTE | 2018-12-20 09:40 | PDOC ---
PROGRESS NOTES Subjective Subjective feels better today Objective Objective Vital Signs Date Time Temp Pulse Resp B/P (MAP) Pulse Ox O2 Delivery O2 Flow Rate FiO2 12/20/18 08:33 85 132/80 12/20/18 08:00 Room Air 12/20/18 07:35 98.0 20 99 98.0 12/19/18 15:55 2.0 Intake and Output 12/20/18 07:01 Intake Total 2260 ml Output Total 0 ml Balance 2260 ml Intake Oral 1660 ml IV Total 600 ml Output Urine Total 0 ml # Voids 5 Physical Exam Abdomen: Soft, Other (TTP left abdomen ) Heart: Regular rate General: Alert, Oriented X3, Cooperative, No acute distress HEENT: Atraumatic Lungs: Normal air movement MUSCULOSKELETAL: No deformity Neck: No JVD Neuro: Normal speech Psych/Mental Status: Mental status NL Skin: No breakdown Diagnosis Problem List Problems Medical Problems: (1) Intractable abdominal pain Status: Acute Assessment Assessment Problems Medical Problems: (1) Intractable abdominal pain Status: Acute FINAL IMPRESSION: 1. Abdominal pain, left lower quadrant, possible diverticulosis?. 2. Asymptomatic gallstones. 3. Diabetes.uncontrolled A1C 12 4. Hypertension. 5. Hyperlipidemia. 6. History of bipolar, on Geodon. 7. Lactic acidosis. PLAN: colonoscopy 12/19/18 post-op dx internal hemorrhoids hepatic flexure polyp s/p polypectomy lantus 20 u hs +novolog 15 u tid labs good lactic acid down amylase and lipase normal CT abd and pelvis ok cxr -neg. atorvaststin 40 mg at hs d/c home today. Plan Plan of Care Problems Medical Problems: (1) Intractable abdominal pain Status: Acute Comment Review of Relevant I have reviewed the following items chad (where applicable) has been applied. Labs Laboratory Tests Test 12/19/18 11:04 12/19/18 17:00 12/19/18 21:37 Glucose (Fingerstick) 231 mg/dL (70-99) 340 mg/dL (70-99) 268 mg/dL (70-99) Microbiology 12/16/18 Blood Culture - Preliminary, Resulted NO GROWTH AFTER 3 DAYS Medications Current Medications Atorvastatin Calcium (Lipitor) 40 mg QHS PO Last administered on 12/19/18at 22: 50; Start 12/19/18 at 21:00 Insulin Glargine (Lantus) 10 units QHS SQ Last administered on 12/19/18at 23:25 ; Start 12/19/18 at 21:00 Insulin Human Lispro (HumaLOG) 7 units 1X ONCE SQ ; Start 12/20/18 at 09:30; Stop 12/20/18 at 09:31; Status DC Propofol 40 ml @ As Directed STK-MED ONCE IV ; Start 12/19/18 at 13:18; Stop at 13:20; Status DC Ringer's Solution 1,000 ml @ 75 mls/hr 1X ONCE IV Last administered on at 12:48; Start 12/19/18 at 13:00; Stop 12/20/18 at 02:19; Status DC Vitals/I & O Vital Sign - Last 24 Hours 12/19/18 12/19/18 12/19/18 12/19/18 11:30 12:42 13:42 13:57 Temp 98.5 97.8 97.6 98.5 97.8 97.6 Pulse 120 83 94 90 Resp 20 18 16 16 B/P (MAP) 126/89 (101) 84/52 100/65 Pulse Ox 98 95 97 98 O2 Delivery Room Air Nasal Cannula Room Air O2 Flow Rate 2 12/19/18 12/19/18 12/19/18 12/19/18 14:10 14:46 15:29 15:55 Temp 99.4 99.4 Pulse 82 120 Resp 16 18 B/P (MAP) 102/63 110/66 (81) Pulse Ox 97 97 96 96 O2 Delivery Room Air Room Air Room Air O2 Flow Rate 2.0 2.0 12/19/18 12/19/18 12/19/18 12/19/18 19:25 20:00 22:49 23:30 Temp 98.8 97.6 98.8 97.6 Pulse 116 84 Resp 16 16 B/P (MAP) 131/80 (97) 100/58 (72) Pulse Ox 98 95 O2 Delivery Room Air Room Air Room Air Room Air 12/20/18 12/20/18 12/20/18 12/20/18 03:35 05:35 07:22 07:35 Temp 97.9 98.0 97.9 98.0 Pulse 84 85 Resp 16 20 B/P (MAP) 121/77 (92) 132/80 (97) Pulse Ox 96 99 O2 Delivery Room Air Room Air Room Air Room Air 12/20/18 12/20/18 12/20/18 08:00 08:33 08:33 Pulse 85 85 B/P (MAP) 132/80 132/80 O2 Delivery Room Air Intake and Output 12/19/18 12/19/18 12/20/18 15:01 23:01 07:01 Intake Total 600 ml 300 ml 1360 ml Output Total 0 ml Balance 600 ml 300 ml 1360 ml NICOLE SANDERS MD Dec 20, 2018 09:40
[2018-12-20 11:19] VITALS: BP 119/64
--- NOTE | 2018-12-20 12:18 | PDOC ---
Subjective: Subjective: Feeling better, still has a little LLQ pain. Tolerating PO, feels okay to go home. Objective: Vital Signs: Vital Signs Date Time Temp Pulse Resp B/P (MAP) Pulse Ox O2 Delivery O2 Flow Rate FiO2 12/20/18 11:19 97.4 106 20 119/64 (82) 96 Room Air 97.4 12/19/18 15:55 2.0 Labs: Laboratory Tests Test 12/19/18 17:00 12/19/18 21:37 12/20/18 07:49 12/20/18 11:49 Glucose (Fingerstick) 340 mg/dL 268 mg/dL 306 mg/dL 193 mg/dL Imaging: Colonoscopy 12/19 internal hemorrhoids hepatic flexure polyp s/p polypectomy PE: GEN: NAD LUNGS: CTAB HEART: RRR ABD: soft, vague mild tenderness LLQ NEURO/PSYCH: A & O �3 A/P: LLQ pain - better -- DC per primary, plan for outpt SBS, also f/u re: polyp path results. RANCHO HAYNES Dec 20, 2018 12:18
--- NOTE | 2018-12-20 14:45 | NUR ---
Discharge Note: BÁRBARA JACKMAN6 [facility] Discharge instructions and discharge home medications reviewed with Patient and a copy given. All questions have been answered and understanding verbalized. The following instructions and handouts were given: information about abdominal pain and changes in medications, scripts given to patient. Discontinued lines and drains: IV line in right hand removed, catheter tip intact. Patient discharged to home with self care with family member, wheelchair used for mobility to discharge vehicle.
--- NOTE | 2018-12-20 17:11 | PATHOLOGY ---
[facility] Accession Number: [id number] . 01 Material submitted: . HEPATIC FLEXURE POLYP . 01 Clinical history: . Abdominal pain . 02 Diagnosis: Colon biopsies, hepatic flexure polyp: - Tubular adenoma. [facility]/12/20/2018 . 02 Comment: There is no high-grade dysplasia or evidence of malignancy. (JPM:[facility] 12/20/2018) . 02 Electronically signed: . Moreno Reaves MD, Pathologist NPI- [id number] . 01 Gross description: . The specimen is received in formalin, labeled "Luiz [place], hepatic flexure polyp", is a chamberlain, rubbery, sessile polyp measuring 0.5 x 0.4 x 0.2 cm, inked black, bisected and entirely submitted in A1. Also received within the container are several irregular fragments of chamberlain tissues measuring 0.5 x 0.4 x 0.2 cm in aggregate, entirely submitted in A2. ([facility]; 12/19/2018) [facility]S . 02 Pathologist provided ICD-10: D12.3 . 02 CPT . 532254 Specimen Comment: A courtesy copy of this report has been sent to Specimen Comment: [phone], , . Specimen Comment: Report sent to , DR SANDERS / DR POWELL Specimen Comment: A duplicate report has been generated due to demographic updates. Performed at: 01 [facility] [address], [place] [id number] MD Alberto Newell MD Phone: [phone] Performed at: 02 [facility] [address] [place], [place] [id number] MD Moreno Reaves MD Phone: [phone]
--- NOTE | 2018-12-21 14:06 | PDOC ---
Provider Note Provider Note Discharge summary dictated.#[id number]. NICOLE SANDERS MD Dec 21, 2018 14:06
--- NOTE | 2018-12-21 14:17 | DS ---
DATE OF DISCHARGE: 12/20/2018 REASON FOR ADMISSION TO THE HOSPITAL: Abdominal pain, lactic acidosis. CONSULTATIONS: Heath Cee MD, and Armando Paula MD. PROCEDURES DONE: 1. CT of abdomen and pelvis. 2. Colonoscopy. HOSPITAL COURSE: The patient is a 53-year-old male with history of diabetes, hypertension, history of schizophrenia, goes to mental health care. He was having some abdominal pain, severe, came to the Emergency Room, had a CBC, chem profile was unremarkable. Lactic acid was high at 2.4. He was started on broad-spectrum antibiotic. Amylase and lipase was normal. Had a CT scan, which was benign and lactic acid improved the next day. Urine was negative for infection except sugar more than 1000. He had a chest x-ray was negative. CT scan of abdomen and pelvis shows some gallstones. The patient was seen by Surgery. Because of diabetes, it was recommended he would need elective gallbladder surgery and the patient had a colonoscopy because of abdominal pain, which shows internal hemorrhoids, hepatic flexure polyp, polypectomy was done and the pathology came back tubular adenoma and the patient was feeling better and was discharged home. FINAL DIAGNOSES: 1. Severe abdominal pain. 2. Colon polyp adenoma. 3. Diabetes. 4. Asymptomatic gallstones. 5. History of schizophrenia. PLAN: 1. At this time, discharge home, outpatient surgical follow up for gallbladder surgery. 2. Colonoscopy in 3 years again and see how he does. 3. If the patient continues to have abdominal pain, recommended small bowel series. NICOLE SANDERS MD DR: WAI/lorenzo JOB#: [id number] / [id number]
== END 2018-12-20 14:45 | disposition home or self-care (01) | DRG 394 ==
LOC: ER 15:05 → 6 SOUTH 17:30
PROVIDERS: ADMIT Internal Medicine; ATTEND Internal Medicine
PROC: 0DBL8ZX Excision of Transverse Colon, Via Natural or Artificial Opening Endoscopic, Diagnostic (ICD-10-PCS; principal; 2018-12-19 13:30)
DX: D12.3 Benign neoplasm of transverse colon (principal); E87.2 Acidosis; R65.10 Systemic inflammatory response syndrome (SIRS) of non-infectious origin without acute organ dysfunction; K64.8 Other hemorrhoids; K80.20 Calculus of gallbladder without cholecystitis without obstruction; E11.40 Type 2 diabetes mellitus with diabetic neuropathy, unspecified; F20.9 Schizophrenia, unspecified; F31.9 Bipolar disorder, unspecified; F41.9 Anxiety disorder, unspecified; M19.90 Unspecified osteoarthritis, unspecified site; E78.00 Pure hypercholesterolemia, unspecified; M79.7 Fibromyalgia; E78.5 Hyperlipidemia, unspecified; F17.210 Nicotine dependence, cigarettes, uncomplicated; I10 Essential (primary) hypertension; E11.9 Type 2 diabetes mellitus without complications; Z91.041 Radiographic dye allergy status; Z91.040 Latex allergy status; Z91.013 Allergy to seafood; Z87.442 Personal history of urinary calculi; Z83.3 Family history of diabetes mellitus; Z82.49 Family history of ischemic heart disease and other diseases of the circulatory system; Z79.82 Long term (current) use of aspirin; Z79.84 Long term (current) use of oral hypoglycemic drugs; Z79.899 Other long term (current) drug therapy
CPT/HCPCS: 36415; 45380; 71046; 74176; 80053; 80061; 81001; 82150; 82962; 83036; 83605; 83690; 84443; 84484; 85025; 87040; 88305; 93005; 96361; 96374; 96375; J1815; J1956; J2270; J2405; J2704; J3010; J3490; J7030; J7120; 99285-25; G0378

== ENCOUNTER 2019-02-15 02:49 | Emergency (ER) | payer MEDICARE ==
[~2019-02-15] VITALS: Ht 193 cm; Wt 117.9 kg
[~2019-02-15 02:49] MED LIST changes: +AMLO10TA8 PO; +ATOR40TA59 PO; +DULO60CA6 PO; +GABA600T7 PO; +INSU100C4 SQ; +INSU100I13 SQ; +LOSA100T14 PO; +ZIPR40CA2 PO
[2019-02-15 03:25] LABS: BASO # 0.1 x10^3/uL (0.0-0.2); BASO % 1 % (0-3); EOS % 0 % (0-3); HEMATOCRIT 40.1 % (39.0-53.0); HEMOGLOBIN 12.8 g/dL (13.0-17.5); LYMPH # 2.3 x10^3/uL (1.0-4.8); LYMPH % 23 % (24-48); MEAN CORPUSCULAR HEMOGLOBIN 26 pg (25-35); MEAN CORPUSCULAR HGB CONC 32 g/dL (31-37); MEAN CORPUSCULAR VOLUME 81 fL (79-100); MONO # 0.6 x10^3/uL (0.0-1.1); MONO % 6 % (0-9); NEUT % 70 % (31-73); PLATELET COUNT 404 x10^3/uL (140-400); RED BLOOD COUNT 4.96 x10^6/uL (4.30-5.70); RED CELL DISTRIBUTION WIDTH 14.5 % (11.5-14.5); WHITE BLOOD COUNT 10.1 x10^3/uL (4.0-11.0)
[2019-02-15] MEDS ORDERED: IV NORMAL SALINE 1000ML BAG 1,000 ML IV ONE (03:30)
[2019-02-15] MEDS ORDERED: fentaNYL PF VIAL 100 MCG/2 ML VIAL IV ONE (03:30)
[2019-02-15] MEDS ORDERED: FAMOTIDINE 20 MG/2 ML VIAL IVP ONE (03:30)
[2019-02-15] MEDS ORDERED: ONDANSETRON PF 4 MG/2 ML VIAL. IV ONE (03:30)
[2019-02-15 03:34] LABS: PROTHROMBIN TIME PATIENT 12.7 SEC (11.7-14.0)
[2019-02-15 03:43] LABS: CALCIUM 9.4 mg/dL (8.5-10.1); GFR 93.9; POTASSIUM 4.1 mmol/L (3.5-5.1)
--- NOTE | 2019-02-15 03:43 | PHYS DOC ---
Past Medical History Past Medical History: Anxiety, Bipolar, Diabetes-Type II, High Cholesterol, Hypertension Additional Past Medical Histor: FIBROMYALGIA, NEUROPATHY, EARLY ONSET OSTEOARTHRITIS Past Surgical History: Appendectomy, Tonsillectomy Additional Past Surgical Histo: R/L KNEE Alcohol Use: None Drug Use: None Adult General Chief Complaint Chief Complaint: GI PROBLEM HPI HPI This is a 53-year-old male who presented to the ED today complaining of abdominal pain. The pain started back in December and has progressively gotten worse. In December, the patient was seen and a CT was ordered revealing cholelithiasis. He was scheduled for elective cholecystectomy, however this was canceled due to uncontrolled blood glucose and has not been rescheduled. The pain is predominantly in the right upper quadrant, sometimes radiating to the umbilicus. The patient has tried different positions to help with the pain to no avail, however laying down makes it worse. This recently had a cold-cut sandwich which precipitated his symptoms. His pain has been intermittent since December but has been constant tonight. He has also been feeling nauseous and complains of reflux. At the onset of his most recent episode, he also complained of chest pain which has now subsided. It is also been difficult for him to breathe while he is in pain. Review of Systems Review of Systems Constitutional: Denies fever or chills. Eyes: Denies change in visual acuity, redness, or eye pain. HENT: Denies nasal congestion or sore throat. Respiratory: Denies cough or shortness of breath. Admits difficulty breathing during episodes of pain. Cardiovascular: Denies chest pain and palpitations. GI: Admits RUQ abdominal pain, nausea, reflux. Denies vomiting, bloody stools or diarrhea. : Denies dysuria or hematuria. Integument: Denies rash or skin lesions. Neurologic: Denies headache, focal weakness or sensory changes. Complete systems were reviewed and found to be within normal limits, except as documented in this note. Current Medications Current Medications Current Medications Medications (Trade) Dose Ordered Sig/Tiff Start Time Stop Time Status Last Admin Dose Admin Famotidine (Pepcid Vial) 20 mg 1X ONCE 02/15/19 03:30 02/15/19 03:31 DC 02/15/19 03:46 20 MG Fentanyl Citrate (Fentanyl 2ml Vial) 50 mcg 1X ONCE 02/15/19 03:30 02/15/19 03:31 DC 02/15/19 03:47 50 MCG Insulin Human Regular (HumuLIN R VIAL) 14 unit 1X ONCE 02/15/19 04:15 02/15/19 04:16 DC 02/15/19 04:17 14 UNIT Ketorolac Tromethamine (Toradol 15mg Vial) 15 mg STK-MED ONCE 02/15/19 04:38 02/15/19 04:39 DC Ondansetron HCl (Zofran) 4 mg 1X ONCE 02/15/19 03:30 02/15/19 03:31 DC 02/15/19 03:46 4 MG Sodium Chloride 1,000 ml @ 1,000 mls/hr 1X ONCE 02/15/19 03:30 02/15/19 04:29 DC 02/15/19 03:46 1,000 MLS/HR Allergies Allergies Allergies Coded Allergies Type Severity Reaction Last Updated Verified iodine Allergy Severe Anaphylaxis 01/05/19 Yes shellfish derived Allergy Severe Anaphylaxis 01/05/19 Yes latex Allergy Intermediate Rash 01/05/19 Yes Physical Exam Physical Exam Constitutional: Well developed, well nourished, in acute distress, appearing uncomfortable. HENT: Normocephalic, atraumatic, bilateral external ears normal, oropharynx moist, no oral exudates, nose normal. Eyes: PERRL, EOMI, conjunctiva normal, no discharge. Neck: Normal range of motion, no tenderness, supple, no stridor. Cardiovascular: Heart rate tachycardic, no murmur. Lungs & Thorax: Bilateral breath sounds clear to auscultation. Abdomen: Bowel sounds normal, soft, tenderness to palpation of RUQ, no masses, no pulsatile masses. Skin: Warm, dry, no erythema, no rash. Extremities: No tenderness, no cyanosis, no clubbing, ROM intact, no edema. Neurologic: Alert and oriented X 3, normal motor function, normal sensory function, no focal deficits noted. Psychologic: Affect normal, judgement normal, mood normal. Current Patient Data Vital Signs Vital Signs Date Time Temp Pulse Resp B/P (MAP) Pulse Ox O2 Delivery O2 Flow Rate FiO2 02/15/19 04:32 75 157/90 (112) 96 Room Air 02/15/19 02:54 98.9 21 98.9 Lab Values Laboratory Tests Test 02/15/19 03:05 02/15/19 03:15 02/15/19 03:35 Glucose (Fingerstick) 387 mg/dL (70-99) H White Blood Count 10.1 x10^3/uL (4.0-11.0) Red Blood Count 4.96 x10^6/uL (4.30-5.70) Hemoglobin 12.8 g/dL (13.0-17.5) L Hematocrit 40.1 % (39.0-53.0) Mean Corpuscular Volume 81 fL (79-100) Mean Corpuscular Hemoglobin 26 pg (25-35) Mean Corpuscular Hemoglobin Concent 32 g/dL (31-37) Red Cell Distribution Width 14.5 % (11.5-14.5) Platelet Count 404 x10^3/uL (140-400) H Neutrophils (%) (Auto) 70 % (31-73) Lymphocytes (%) (Auto) 23 % (24-48) L Monocytes (%) (Auto) 6 % (0-9) Eosinophils (%) (Auto) 0 % (0-3) Basophils (%) (Auto) 1 % (0-3) Neutrophils # (Auto) 7.0 x10^3uL (1.8-7.7) Lymphocytes # (Auto) 2.3 x10^3/uL (1.0-4.8) Monocytes # (Auto) 0.6 x10^3/uL (0.0-1.1) Eosinophils # (Auto) 0.0 x10^3/uL (0.0-0.7) Basophils # (Auto) 0.1 x10^3/uL (0.0-0.2) Prothrombin Time 12.7 SEC (11.7-14.0) Prothrombin Time INR 1.0 (0.8-1.1) PTT 26 SEC (24-38) Sodium Level 139 mmol/L (136-145) Potassium Level 4.1 mmol/L (3.5-5.1) Chloride Level 100 mmol/L (98-107) Carbon Dioxide Level 27 mmol/L (21-32) Anion Gap 12 (6-14) Blood Urea Nitrogen 14 mg/dL (8-26) Creatinine 1.0 mg/dL (0.7-1.3) Estimated GFR (Cockcroft-Gault) 93.9 BUN/Creatinine Ratio 14 (6-20) Glucose Level 390 mg/dL (70-99) H Calcium Level 9.4 mg/dL (8.5-10.1) Total Bilirubin 0.4 mg/dL (0.2-1.0) Aspartate Amino Transferase (AST) 15 U/L (15-37) Alanine Aminotransferase (ALT) 35 U/L (16-63) Alkaline Phosphatase 117 U/L (46-116) H Creatine Kinase 130 U/L (39-308) Creatine Kinase MB (Mass) 0.9 ng/mL (0.0-3.6) Creatine Kinase MB Relative Index 0.7 % (0-4) Troponin I Quantitative < 0.017 ng/mL (0.000-0.055) Total Protein 7.4 g/dL (6.4-8.2) Albumin 3.6 g/dL (3.4-5.0) Albumin/Globulin Ratio 0.9 (1.0-1.7) L Lipase 144 U/L (73-393) Urine Collection Type Void Urine Color Yellow Urine Clarity Clear Urine pH 5.5 Urine Specific [place] >=1.030 Urine Protein Negative mg/dL (NEG-TRACE) Urine Glucose (UA) >=1000 mg/dL (NEG) Urine Ketones (Stick) Negative mg/dL (NEG) Urine Blood Negative (NEG) Urine Nitrite Negative (NEG) Urine Bilirubin Negative (NEG) Urine Urobilinogen Dipstick 0.2 mg/dL (0.2 mg/dL) Urine Leukocyte Esterase Negative (NEG) Urine RBC Occ /HPF (0-2) Urine WBC Occ /HPF (0-4) Urine Squamous Epithelial Cells Occ /LPF Urine Bacteria 0 /HPF (0-FEW) Laboratory Tests 02/15/19 03:15 Laboratory Tests 02/15/19 03:15 EKG EKG ECG taken at 02/15/2019 at 3:26:44. Sinus rhythm at rate of 80bpm. Low voltage QRS. No STEMI or signs of ischemia noted. Radiology/Procedures Radiology/Procedures ABDOMINAL ULTRASOUND 1. Cholelithiasis. 2. Fatty infiltration of the liver. Course & Med Decision Making Course & Med Decision Making Pertinent Labs and Imaging studies reviewed. (See chart for details) This is a 53-year-old male with past medical history of diabetes, hypertension, depression and anxiety who presented early this morning complaining of right upper quadrant abdominal pain of one month's duration. He was seen in December and a CT was ordered which revealed cholelithiasis. He was scheduled for an elective cholecystectomy which was later canceled secondary to uncontrolled and elevated blood glucose levels. At the time of this visit was, his blood glucose was measured to be 387. An ultrasound was ordered which revealed cholelithiasis. His pain was controlled in the ED. He was discharged home with [place], Pepcid, and Zofran for symptomatic relief and agreed to follow-up with his PCP for diabetes management and rescheduling of outpatient cholecystectomy. Dragon Disclaimer Dragon Disclaimer This electronic medical record was generated, in whole or in part, using a voice recognition dictation system. Departure Departure Impression: Primary Impression: Biliary colic Additional Impression: Hyperglycemia Disposition: 01 HOME, SELF-CARE Condition: STABLE Referrals: NICOLE SANDERS MD (PCP) Patient Instructions: Biliary Colic, Hyperglycemia, [id number] Scripts Ondansetron (ONDANSETRON ODT) 4 Mg Tab.rapdis 1 TAB PO PRN Q6-8HRS PRN for NAUSEA, #16 TAB Prov: SHEA HALLMAN DO 02/15/19 Hydrocodone/Apap 5-325 (NORCO 5-325 TABLET) 1 Each Tablet 1 TAB PO PRN Q6HRS PRN for PAIN, #10 TAB 0 Refills Prov: SHEA HALLMAN DO 02/15/19 Famotidine (PEPCID) 20 Mg Tablet 20 MG PO BID, #20 TAB Prov: SHEA HALLMAN DO 02/15/19 Problem Qualifiers SHEA HALLMAN DO Feb 15, 2019 03:43
[2019-02-15 03:45] LABS: BILIRUBIN,URINE NEGATIVE (NEG); CLARITY,URINE CLEAR; COLOR,URINE YELLOW; NITRITE,URINE NEGATIVE (NEG); PH,URINE 5.5; PROTEIN,URINE NEGATIVE (NEG-TRACE); UROBILINOGEN,URINE 0.2 mg/dL (0.2 mg/dL)
[2019-02-15 03:49] LABS: ALBUMIN 3.6 g/dL (3.4-5.0); ALBUMIN/GLOBULIN RATIO 0.9 (1.0-1.7); TOTAL BILIRUBIN 0.4 mg/dL (0.2-1.0); TOTAL PROTEIN 7.4 g/dL (6.4-8.2)
[2019-02-15 04:02] LABS: RBC,URINE OCC /HPF (0-2); WBC,URINE OCC /HPF (0-4)
[2019-02-15 04:03] LABS: BACTERIA,URINE 0 /HPF (0-FEW); SQUAMOUS EPITHELIAL CELL,UR OCC /LPF
[2019-02-15] MEDS ORDERED: INSULIN REGULAR 100 UNIT/ML 3ML VIAL. SQ ONE (04:15)
--- NOTE | 2019-02-15 04:20 | RAD ---
Ultrasound of the right upper quadrant of the abdomen 02/15/2019 CLINICAL HISTORY: Right upper quadrant abdominal pain. TECHNIQUE: A real-time ultrasound examination of the right upper quadrant of the abdomen was performed. Multiple images were obtained. FINDINGS: Comparison is made to a CT scan of the abdomen dated 10/09/2016. The gallbladder is contracted. Calcified gallstones are seen within the gallbladder. The gallbladder wall thickness is within normal limits. No pericholecystic fluid is seen. The liver is normal in size measuring 18.4 cm in length. Increased echogenicity of the liver parenchyma is seen consistent with fatty infiltration. The common bile duct measures 6 mm in diameter which is within normal limits. The visualized portions of the pancreas and right kidney are within normal limits. IMPRESSION: 1. Cholelithiasis. 2. Fatty infiltration of the liver. Electronically signed by: Davis Olson MD (02/15/2019 4:17 AM) [facility]
[2019-02-15] MEDS ORDERED: HYDR-3164 PO (04:26)
[2019-02-15] MEDS ORDERED: ONDA4TAB12 PO (04:26)
[2019-02-15] MEDS ORDERED: FAMO-63 PO (04:26)
[2019-02-15 04:32] VITALS: BP 157/90
[2019-02-15] MEDS ORDERED: KETOROLAC 15 MG/ML VIAL. ONE (04:38)
[2019-02-15] MEDS ORDERED: KETOROLAC 15 MG/ML VIAL. IV ONE (04:45)
--- NOTE | 2019-02-15 08:57 | EKG ---
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
== END 2019-02-15 04:53 | disposition home or self-care (01) ==
LOC: ER 02:49
DX: K80.50 Calculus of bile duct without cholangitis or cholecystitis without obstruction (principal); E11.65 Type 2 diabetes mellitus with hyperglycemia; F31.9 Bipolar disorder, unspecified; E78.00 Pure hypercholesterolemia, unspecified; I10 Essential (primary) hypertension; E11.40 Type 2 diabetes mellitus with diabetic neuropathy, unspecified; Z91.041 Radiographic dye allergy status; Z91.040 Latex allergy status; Z91.013 Allergy to seafood
CPT/HCPCS: 36415; 76705; 80053; 81001; 82553; 82962; 83690; 84484; 85025; 85610; 85730; 93005; 96361; 96372; 96374; 96375; 99284; J1815; J1885; J2405; J3010; J3490; J7030

== ENCOUNTER 2019-04-09 17:01 | Emergency (ER) | payer MEDICARE ==
[~2019-04-09] VITALS: Ht 193 cm; Wt 120.2 kg
[~2019-04-09 17:01] MED LIST changes: +FAMO-63 PO; +ONDA4TAB12 PO
[2019-04-09 17:22] LABS: BASO # 0.1 x10^3/uL (0.0-0.2); BASO % 1 % (0-3); EOS # 0.1 x10^3/uL (0.0-0.7); EOS % 1 % (0-3); HEMOGLOBIN 13.8 g/dL (13.0-17.5); LYMPH # 2.5 x10^3/uL (1.0-4.8); LYMPH % 32 % (24-48); MEAN CORPUSCULAR HEMOGLOBIN 26 pg (25-35); MEAN CORPUSCULAR HGB CONC 33 g/dL (31-37); MEAN CORPUSCULAR VOLUME 80 fL (79-100); MONO # 0.7 x10^3/uL (0.0-1.1); MONO % 9 % (0-9); NEUT # 4.5 x10^3uL (1.8-7.7); NEUT % 58 % (31-73); PLATELET COUNT 432 x10^3/uL (140-400); RED BLOOD COUNT 5.24 x10^6/uL (4.30-5.70); RED CELL DISTRIBUTION WIDTH 15.3 % (11.5-14.5); WHITE BLOOD COUNT 7.9 x10^3/uL (4.0-11.0)
[2019-04-09 17:33] LABS: CALCIUM 10.5 mg/dL (8.5-10.1); CREATININE 1.1 mg/dL (0.7-1.3); GFR 84.1; POTASSIUM 4.4 mmol/L (3.5-5.1)
[2019-04-09 17:38] LABS: ALBUMIN/GLOBULIN RATIO 1.1 (1.0-1.7); MAGNESIUM 1.8 mg/dL (1.8-2.4); TOTAL PROTEIN 7.8 g/dL (6.4-8.2)
[2019-04-09] MEDS ORDERED: IV NORMAL SALINE 1000ML BAG 1,000 ML IV ONE (17:45)
[2019-04-09] MEDS ORDERED: FAMOTIDINE 20 MG/2 ML VIAL IVP ONE (17:45)
[2019-04-09] MEDS ORDERED: ONDANSETRON PF 4 MG/2 ML VIAL. IV ONE (17:45)
--- NOTE | 2019-04-09 18:24 | RAD ---
CT of the abdomen and pelvis without contrast 04/09/2019. Reason for exam: Abdominal pain. Helical noncontrast images were performed. Exposure: One or more of the following individualized dose reduction techniques were utilized for this examination: 1. Automated exposure control 2. Adjustment of the mA and/or kV according to patient size 3. Use of iterative reconstruction technique. Comparison is made with a study 12/16/2018. FINDINGS: The lung bases are clear. The liver and spleen are homogeneous in density and normal in configuration. The gallbladder is again shown to contain a large stone. There is no obvious inflammation. The kidneys have no apparent mass, calcification or obstruction. The adrenal glands are not enlarged. The pancreas appears normal. No retroperitoneal or mesenteric adenopathy is seen. There is no apparent abdominal soft tissue mass or inflammatory process. Images through the pelvis show no apparent abnormality of the distal ureters or bladder. No pelvic or inguinal adenopathy is seen. There is no apparent pelvic mass or inflammatory process. IMPRESSION: No apparent acute abnormality. Cholelithiasis. Electronically signed by: Fredi Tafoya Jr., MD (04/09/2019 6:21 PM) [facility]
[2019-04-09 19:08] LABS: BILIRUBIN,URINE NEGATIVE (NEG); CLARITY,URINE CLEAR; COLOR,URINE YELLOW; NITRITE,URINE NEGATIVE (NEG); PH,URINE 5.5; PROTEIN,URINE NEGATIVE (NEG-TRACE); UROBILINOGEN,URINE 0.2 mg/dL (0.2 mg/dL)
[2019-04-09 19:14] LABS: BACTERIA,URINE 0 /HPF (0-FEW); RBC,URINE 0 /HPF (0-2); WBC,URINE 0 /HPF (0-4)
[2019-04-09] MEDS ORDERED: MORPHINE SULFATE 10 MG/ML VIAL. IV ONE (19:15)
[2019-04-09] MEDS ORDERED: MORPHINE SULFATE 10 MG/ML VIAL. ONE (19:15)
[2019-04-09 19:19] LABS: BARBITURATES NEG (NEG); BENZODIAZEPINES NEG (NEG); CANNABINOIDS NEG (NEG); COCAINE NEG (NEG); METHADONE NEG (NEG); OPIATES NEG (NEG); PHENCYCLIDINE NEG (NEG)
[2019-04-09 19:20] LABS: AMPHETAMINE/METHAMPHETAMINE NEG (NEG)
--- NOTE | 2019-04-09 19:56 | PHYS DOC ---
Past Medical History Past Medical History: Anxiety, Bipolar, Diabetes-Type II, High Cholesterol, Hypertension Additional Past Medical Histor: FIBROMYALGIA, NEUROPATHY, EARLY ONSET OSTEOARTHRITIS (EVA [place] APRN) Past Surgical History: Appendectomy, Tonsillectomy Additional Past Surgical Histo: R/L KNEE (EVA [place] APRN) Alcohol Use: None Drug Use: None (EVA FRANCE APRN) Adult General Chief Complaint Chief Complaint: ABDOMINAL PAIN HPI HPI Patient is a 53 year old male with history of diabetes type 2, hypertension, high cholesterol, bipolar, anxiety, who presents to the ED today complaining of 8 out of 10 generalize abdominal pain symptoms have been going on for 1 month. Patient states the pain is intermittent. He describes the pain as churning in his stomach. He states he has had a couple episodes of diarrhea. Denies any bloody stools. Denies any chest pain or shortness of breath. He states he has been seen by his PCP a couple times and he was started on Protonix during his last visit. Patient denies anything relieving the pain is exacerbating the pain. (EVA FRANCE APRN) Review of Systems Review of Systems Constitutional: Denies fever or chills [] Eyes: Denies change in visual acuity, redness, or eye pain [] HENT: Denies nasal congestion or sore throat [] Respiratory: Denies cough or shortness of breath [] Cardiovascular: No additional information not addressed in HPI [] GI: Reports abdominal pain and a couple episodes of diarrhea. Denies nausea, vomiting, bloody stools : Denies dysuria or hematuria [] Musculoskeletal: Denies back pain or joint pain [] Integument: Denies rash or skin lesions [] Neurologic: Denies headache, focal weakness or sensory changes [] Endocrine: Denies polyuria or polydipsia [] All other systems were reviewed and found to be within normal limits, except as documented in this note. (EVA FR[place] APRN) Current Medications Current Medications Current Medications Medications (Trade) Dose Ordered Sig/Tiff Start Time Stop Time Status Last Admin Dose Admin Famotidine (Pepcid Vial) 20 mg 1X ONCE 04/09/19 17:45 04/09/19 17:46 DC 04/09/19 17:27 20 MG Insulin Human Regular (HumuLIN R VIAL) 5 unit 1X ONCE 04/09/19 20:00 04/09/19 20:01 DC 04/09/19 20:10 5 UNIT Morphine Sulfate (Morphine Sulfate) 10 mg STK-MED ONCE 04/09/19 19:15 04/09/19 19:16 DC Multi-Ingredient Mouthwash/Gargle (Gi Cocktail) 20 ml 1X ONCE 04/09/19 20:00 04/09/19 20:10 DC 04/09/19 20:12 20 ML Ondansetron HCl (Zofran) 4 mg 1X ONCE 04/09/19 17:45 04/09/19 17:46 DC 04/09/19 17:27 4 MG Sodium Chloride 1,000 ml @ 1,000 mls/hr 1X ONCE 04/09/19 17:45 04/09/19 18:44 DC 04/09/19 17:28 1,000 MLS/HR (SHEA HALLMAN DO) Allergies Allergies Allergies Coded Allergies Type Severity Reaction Last Updated Verified iodine Allergy Severe Anaphylaxis 01/05/19 Yes shellfish derived Allergy Severe Anaphylaxis 01/05/19 Yes latex Allergy Intermediate Rash 01/05/19 Yes (SHEA HALLMAN DO) Physical Exam Physical Exam Constitutional: Well developed, well nourished, no acute distress, non-toxic appearance. [] HENT: Normocephalic, atraumatic, bilateral external ears normal, oropharynx moist, no oral exudates, nose normal. [] Eyes: PERRLA, EOMI, conjunctiva normal, no discharge. [] Neck: Normal range of motion, no tenderness, supple, no stridor. [] Cardiovascular:Heart rate regular rhythm, no murmur [] Lungs & Thorax: Bilateral breath sounds clear to auscultation [] Abdomen: Rounded abdomen. Bowel sounds normal, soft, no tenderness, no masses, no pulsatile masses. [] Skin: Warm, dry, no erythema, no rash. [] Back: No tenderness, no CVA tenderness. [] Extremities: No tenderness, no cyanosis, no clubbing, ROM intact, no edema. [] Neurologic: Alert and oriented X 3, normal motor function, normal sensory function, no focal deficits noted. [] Psychologic: Affect normal, judgement normal, mood normal. [] (EVA FRANCE APRN) Current Patient Data Vital Signs Vital Signs Date Time Temp Pulse Resp B/P (MAP) Pulse Ox O2 Delivery O2 Flow Rate FiO2 04/09/19 20:37 79 18 164/88 (113) Room Air 04/09/19 17:09 99.1 96 99.1 (SHEA HALLMAN DO) Lab Values Laboratory Tests Test 04/09/19 17:10 04/09/19 18:59 White Blood Count 7.9 x10^3/uL (4.0-11.0) Red Blood Count 5.24 x10^6/uL (4.30-5.70) Hemoglobin 13.8 g/dL (13.0-17.5) Hematocrit 42.0 % (39.0-53.0) Mean Corpuscular Volume 80 fL (79-100) Mean Corpuscular Hemoglobin 26 pg (25-35) Mean Corpuscular Hemoglobin Concent 33 g/dL (31-37) Red Cell Distribution Width 15.3 % (11.5-14.5) H Platelet Count 432 x10^3/uL (140-400) H Neutrophils (%) (Auto) 58 % (31-73) Lymphocytes (%) (Auto) 32 % (24-48) Monocytes (%) (Auto) 9 % (0-9) Eosinophils (%) (Auto) 1 % (0-3) Basophils (%) (Auto) 1 % (0-3) Neutrophils # (Auto) 4.5 x10^3uL (1.8-7.7) Lymphocytes # (Auto) 2.5 x10^3/uL (1.0-4.8) Monocytes # (Auto) 0.7 x10^3/uL (0.0-1.1) Eosinophils # (Auto) 0.1 x10^3/uL (0.0-0.7) Basophils # (Auto) 0.1 x10^3/uL (0.0-0.2) Sodium Level 137 mmol/L (136-145) Potassium Level 4.4 mmol/L (3.5-5.1) Chloride Level 99 mmol/L (98-107) Carbon Dioxide Level 26 mmol/L (21-32) Anion Gap 12 (6-14) Blood Urea Nitrogen 13 mg/dL (8-26) Creatinine 1.1 mg/dL (0.7-1.3) Estimated GFR (Cockcroft-Gault) 84.1 BUN/Creatinine Ratio 12 (6-20) Glucose Level 316 mg/dL (70-99) H Calcium Level 10.5 mg/dL (8.5-10.1) H Magnesium Level 1.8 mg/dL (1.8-2.4) Total Bilirubin 1.0 mg/dL (0.2-1.0) Aspartate Amino Transferase (AST) 16 U/L (15-37) Alanine Aminotransferase (ALT) 32 U/L (16-63) Alkaline Phosphatase 103 U/L (46-116) Creatine Kinase 137 U/L (39-308) Creatine Kinase MB (Mass) 1.3 ng/mL (0.0-3.6) Creatine Kinase MB Relative Index 0.9 % (0-4) Troponin I Quantitative < 0.017 ng/mL (0.000-0.055) NG-[id number]-Type Natriuretic Peptide 38 pg/mL (0-124) Total Protein 7.8 g/dL (6.4-8.2) Albumin 4.0 g/dL (3.4-5.0) Albumin/Globulin Ratio 1.1 (1.0-1.7) Lipase 124 U/L (73-393) Thyroid Stimulating Hormone (TSH) 1.315 uIU/mL (0.358-3.74) Urine Collection Type Unknown Urine Color Yellow Urine Clarity Clear Urine pH 5.5 Urine Specific [place] 1.025 Urine Protein Negative mg/dL (NEG-TRACE) Urine Glucose (UA) >=1000 mg/dL (NEG) Urine Ketones (Stick) 15 mg/dL (NEG) Urine Blood Negative (NEG) Urine Nitrite Negative (NEG) Urine Bilirubin Negative (NEG) Urine Urobilinogen Dipstick 0.2 mg/dL (0.2 mg/dL) Urine Leukocyte Esterase Negative (NEG) Urine RBC 0 /HPF (0-2) Urine WBC 0 /HPF (0-4) Urine Bacteria 0 /HPF (0-FEW) Urine Opiates Screen Neg (NEG) Urine Methadone Screen Neg (NEG) Urine Barbiturates Neg (NEG) Urine Phencyclidine Screen Neg (NEG) Urine Amphetamine/Methamphetamine Neg (NEG) Urine Benzodiazepines Screen Neg (NEG) Urine Cocaine Screen Neg (NEG) Urine Cannabinoids Screen Neg (NEG) Urine Ethyl Alcohol Neg (NEG) Laboratory Tests 04/09/19 17:10 Laboratory Tests 04/09/19 17:10 (SHEA HALLMAN DO) EKG EKG Interpreted by sinus rhythm, HR 94 no STEMI[] (EVA [place] APRN) Radiology/Procedures Radiology/Procedures []PROCEDURE: CT ABDOMEN PELVIS WO CONTRAST CT of the abdomen and pelvis without contrast 04/09/2019. Reason for exam: Abdominal pain. Helical noncontrast images were performed. Exposure: One or more of the following individualized dose reduction techniques were utilized for this examination: 1. Automated exposure control 2. Adjustment of the mA and/or kV according to patient size 3. Use of iterative reconstruction technique. Comparison is made with a study 12/16/2018. FINDINGS: The lung bases are clear. The liver and spleen are homogeneous in density and normal in configuration. The gallbladder is again shown to contain a large stone. There is no obvious inflammation. The kidneys have no apparent mass, calcification or obstruction. The adrenal glands are not enlarged. The pancreas appears normal. No retroperitoneal or mesenteric adenopathy is seen. There is no apparent abdominal soft tissue mass or inflammatory process. Images through the pelvis show no apparent abnormality of the distal ureters or bladder. No pelvic or inguinal adenopathy is seen. There is no apparent pelvic mass or inflammatory process. IMPRESSION: No apparent acute abnormality. Cholelithiasis. Electronically signed by: Dennis Tafoya Jr., MD (04/09/2019 6:21 PM) [facility] DICTATED and SIGNED BY: DENNIS TAFOYA Jr, MD DATE: 04/09/191820 (EVA [place] APRN) Course & Med Decision Making Course & Med Decision Making Pertinent Labs and Imaging studies reviewed. (See chart for details) This is a 53-year-old male patient presenting to the ED today complaining of generalized abdominal pain for 1 month and a couple episodes of diarrhea. Has been seen by the PCP, was informed he has acid reflex and started on Protonix. CBC with normal WBC, CMP with glucose of 316 anion gap is normal given insulin in the ED he states he could be out of his insulin but he is not sure. AST and ALT are normal. Urine analysis is negative for infection. CT of the abdomen and pelvic was negative for any acute findings, noted for cholelithiasis. Patient was discharged to home encouraged to continue taking his Protonix and follow-up with PCP as well as general surgery for cholelithiasis. Off note upon discharge patient asked for pain medicine for home use. Patient h as been documented as drug seeking. Informed I recommended he follows up with his own doctor for pain medicine. (EVA [place] APRN) Dragon Disclaimer Dragon Disclaimer This electronic medical record was generated, in whole or in part, using a voice recognition dictation system. (EVA [place] APRN) Departure Departure Impression: Primary Impression: Chronic abdominal pain Additional Impressions: Cholelithiasis Hyperglycemia GERD (gastroesophageal reflux disease) Disposition: HOME, SELF-CARE Condition: STABLE Referrals: NICOLE SANDERS MD (PCP) follow up in 1 week NELLY LORENZO MD follow up in 1 week Patient Instructions: Abdominal Pain (Nonspecific), Diet for Gastroesophageal Reflux Disease, Adult, Hyperglycemia, [id number] Additional Instructions: You were evaluated in the emergency room for abdominal pain, your CT was negative for any acute findings, you were noted to have gallbladder disease. Follow-up with your primary care doctor as well as the general surgeon provided. Contact your primary care doctor tomorrow and let him know if you're out of your insulin and so that can give a refills. Continue taking Protonix Attending Signature Attending Signature I have reviewed the PA/RECREATIONAL THERAPY TECHNICIAN's note and plan of care. I was available for consultation as needed during the patient's visit in the emergency department. I agree with the clinical impression, plan, and disposition. (SHEA HALLMAN DO) Problem Qualifiers Additional Impressions: Cholelithiasis Cholelithiasis location: other site Biliary obstruction: without biliary obstruction Qualified Codes: K80.80 - Other cholelithiasis without obstruction GERD (gastroesophageal reflux disease) Esophagitis presence: esophagitis presence not specified Qualified Codes: K21.9 - Gastro-esophageal reflux disease without esophagitis EVA [place] APRN April 09, 2019 19:56 SHEA HALLMAN DO April 10, 2019 05:19
[2019-04-09] MEDS ORDERED: INSULIN REGULAR 100 UNIT/ML 3ML VIAL. IV ONE (20:00)
[2019-04-09] MEDS ORDERED: LIDO:MAALOX 1:1 20 ML SINGLE DOSE. SWSW ONE (20:00)
[2019-04-09 20:37] VITALS: BP 164/88
--- NOTE | 2019-04-10 07:15 | EKG ---
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
== END 2019-04-09 20:35 | disposition home or self-care (01) ==
LOC: ER 17:01
DX: K80.20 Calculus of gallbladder without cholecystitis without obstruction (principal); K21.9 Gastro-esophageal reflux disease without esophagitis; G89.29 Other chronic pain; E11.65 Type 2 diabetes mellitus with hyperglycemia; E78.00 Pure hypercholesterolemia, unspecified; F31.9 Bipolar disorder, unspecified; F41.9 Anxiety disorder, unspecified; Z79.4 Long term (current) use of insulin; Z91.041 Radiographic dye allergy status; Z91.040 Latex allergy status; Z91.013 Allergy to seafood
CPT/HCPCS: 36415; 74176; 80053; 80307; 81001; 82553; 83690; 83735; 83880; 84443; 84484; 85025; 93005; 96361; 96374; 96375; 99285; J1815; J2270; J2405; J3490; J7030